=== PATIENT | female | born 1945 | race Caucasian/White ===

== ENCOUNTER → 2017-01-18 | Outpatient (CLI) | payer BC ==
--- NOTE | 2017-01-19 13:07 | MAMMOGRAPHY REPORT ---
BILATERAL DIGITAL SCREENING MAMMOGRAM TOMOSYNTHESIS WITH CAD: 01/18/2017 CLINICAL HISTORY: Asymptomatic. Personal history of breast cancer. TECHNIQUE: Bilateral breast tomosynthesis in addition to standard 2D mammography was performed. A 2 -D repeat right MLO view and right XCCL view were obtained. Current study was also evaluated with a Computer Aided Detection (CAD) system. COMPARISON: Comparison is made to exams dated: 07/14/2016 mammogram, 01/13/2016 mammogram, 01/01/2016 mammogram, 12/17/2014 mammogram, 12/15/2013 mammogram - [facility], and 11/01/2012 m ammogram - [facility]. BREAST COMPOSITION: The tissue of both breasts is heterogeneously dense, which may obscure small ma sses. FINDINGS: There is an asymmetry in the far superior, posterior right breast, only seen on the MLO v iews. Although this could represent normal overlapping fibroglandular tissue, additional spot compr ession tomosynthesis views and possibly ultrasound are recommended. There is evidence of prior surgery within the right breast. There are scattered benign coarse calci fications bilaterally. Minimal vascular calcification. No other suspicious mass, architectural dis tortion or cluster of microcalcifications is seen. IMPRESSION: ACR BI-RADS CATEGORY 0: INCOMPLETE EVALUATION: NEED ADDITIONAL IMAGING EVALUATION The asymmetry in the posterior, superior right breast needs additional evaluation. The patient will be called to schedule an appointment. Approximately 10% of breast cancers are not detected with mammography. A negative mammographic repor t should not delay biopsy if a clinically suggestive mass is present. Helen Bryant M.D. ay/:01/18/2017 16:49:19 Wellness Specialist: Lachelle Walsh RT(R)(M)(BD), [facility] letter sent: Addl Imaging 0 BI-RADS Code: ACR BI-RADS Category 0: Incomplete Evaluation: Need Additional Imaging Evaluation
== END | disposition home or self-care (01) ==
LOC: C.MAMM 13:27
PROVIDERS: ATTEND Family Medicine
DX: Z12.31 Encounter for screening mammogram for malignant neoplasm of breast (principal); N64.89 Other specified disorders of breast

== ENCOUNTER → 2017-01-27 | Outpatient (CLI) | payer BC ==
--- NOTE | 2017-01-27 13:16 | MAMMOGRAPHY REPORT ---
UNILATERAL RIGHT DIGITAL DIAGNOSTIC MAMMOGRAM TOMOSYNTHESIS AND TARGETED RIGHT ULTRASOUND: 01/27/2017 CLINICAL HISTORY: 71-year-old woman with a personal history of right breast cancer status post breas t conservation therapy called back from screening mammography for an asymmetry in the superior poste rior right breast on the MLO view. TECHNIQUE: Right MLO 2-D view and spot compression MLO tomosynthesis images were obtained. COMPARISON: Comparison is made to exams dated: 01/18/2017 mammogram, 01/01/2016 mammogram, 12/17/2014 m ammogram, 12/15/2013 mammogram - [facility], 11/01/2012 mammogram, and 10/26/2011 mamm ogram - [facility]. BREAST COMPOSITION: The tissue of the right breast is heterogeneously dense, which may obscure smal l masses. FINDINGS: The supplemental mammographic views and tomosynthesis images demonstrate effacement of the dense asymmetry in the superior posterior right breast. There is no evidence of a persistent mass or suspicious architectural distortion in the right breast. There are stable postsurgical changes i ncluding surgical clips. There are benign calcifications and vascular calcifications. Targeted ultrasound was performed at the superior right breast. Normal dense fibroglandular tissue is seen without a suspicious solid or cystic mass. IMPRESSION: ACR BI-RADS CATEGORY 2: BENIGN, TARGETED ULTRASOUND ACR BI-RADS CATEGORY 2: BENIGN Effacement of the right superior asymmetry, and no suspicious sonographic correlate. There is no ma mmographic or targeted sonographic evidence of malignancy. Return to annual mammogram screening sche dule is recommended. The patient has been verbally notified of the results. Approximately 10% of breast cancers are not detected with mammography. A negative mammographic repor t should not delay biopsy if a clinically suggestive mass is present. Helen Bryant M.D. ay/:01/27/2017 12:42:39 Manager Environmental Health And Safety: Giovanny MAYS(Caro)([place]), [facility] letter sent: Normal 1/2 BI-RADS Code: ACR BI-RADS Category 2: Benign Ultrasound BI-RADS: ACR BI-RADS Category 2: Benign
== END | disposition home or self-care (01) ==
LOC: C.MAMM 07:50
PROVIDERS: ATTEND Family Medicine
DX: N64.89 Other specified disorders of breast (principal); Z85.3 Personal history of malignant neoplasm of breast

== ENCOUNTER → 2018-01-19 | Outpatient (CLI) | payer BC ==
--- NOTE | 2018-01-19 15:45 | MAMMOGRAPHY REPORT ---
BILATERAL DIGITAL SCREENING MAMMOGRAM TOMOSYNTHESIS WITH CAD: 01/19/2018 CLINICAL HISTORY: Routine screening. Patient has no complaints. TECHNIQUE: Breast tomosynthesis in addition to standard 2D mammography was performed. Current study was also evaluated with a Computer Aided Detection (CAD) system. COMPARISON: Comparison is made to exams dated: 01/27/2017 ultrasound, 01/27/2017 mammogram, 07/14/2016 ultrasound, 07/14/2016 mammogram, and 01/01/2016 mammogram - [facility]. BREAST COMPOSITION: The tissue of both breasts is heterogeneously dense, which may obscure small mas ses. FINDINGS: There are stable postsurgical changes in the right breast, with surgical clips remaining in place in the far posterior retroareolar right breast. There are a few benign rim calcifications and mild vascular calcifications bilaterally. No new suspicious mass, architectural distortion or clust er of microcalcifications is seen. IMPRESSION: ACR BI-RADS CATEGORY 1: NEGATIVE There is no mammographic evidence of malignancy. A 1 year screening mammogram is recommended. The pa tient will receive written notification of the results. Approximately 10% of breast cancers are not detected with mammography. A negative mammographic report should not delay biopsy if a clinically suggestive mass is present. Helen Bryant M.D. ay/:01/19/2018 14:04:32 Training Technician: Samia MAYS(Caro)(M), [facility] letter sent: Normal 1/2 BI-RADS Code: ACR BI-RADS Category 1: Negative
== END | disposition home or self-care (01) ==
LOC: C.MAMM 13:22
PROVIDERS: ATTEND Family Medicine
DX: Z12.31 Encounter for screening mammogram for malignant neoplasm of breast (principal); Z85.3 Personal history of malignant neoplasm of breast

== ENCOUNTER 2025-05-04 17:07 | Inpatient (IN) ==
[2025-05-04] MEDS: ONDANSETRON INJ 2 MG/ML 2 ML VIAL IV STA (17:35)
[2025-05-04] MEDS: SODIUM CHLORIDE 0.9% 1,000 ML IV SCH (17:35)
--- NOTE | 2025-05-04 17:35 | Emergency Department Note ---
Impression & Plan Acute pyelonephritis, Elevated troponin, Frequent PVCs, Acute hyponatremia, Hypophosphatemia ED Provider Note NAME: CHRISTINE GHOSH AGE: 79 SEX: F : 1945 ARRIVES VIA: Ambulance INFORMANT: Patient, EMS ED PROVIDER(S): Isaac Diana DO CHIEF COMPLAINT: bradycardia HPI: This is a 79-year-old female with the PMHx of HLD presenting to [facility] for further evaluation of bradycardia. Patient is accompanied by EMS who provide additional history. EMS provides further details. The patient presented today to [facility] urgent care and was sent in for bradycardia. They found her heart rate to be in the 30s and 40s. Patient presented there for a week of symptoms including fevers, congestion, chills and nausea without emesis. Patient reports crampy upper abdominal pain. Patient states that she has generalized fatigue, weakness and malaise. Tmax 102F. Denies chest pain or palpitations. No shortness of breath. No urinary complaints. No recent changes in bowel movements. Patient denies recent changes in medications or OTC supplements. Patient offers no other complaints, today. ADDITIONAL HISTORY OBTAINED: Per HPI Chronic Medical/Social Conditions Affecting Care: Per HPI PAST MEDICAL HISTORY: See Below PAST SURGICAL HISTORY: See Below FAMILY HISTORY: See Below SOCIAL HISTORY: See Below HOME MEDICATIONS: See Below ALLERGIES: See Below VITALS: See Below PHYSICAL EXAMINATION: GENERAL: Sitting up in bed, alert, ill appearing, well nourished, no distress, non-toxic EYE EXAM: normal conjunctiva. PERRL and EOM's grossly intact. OROPHARYNX: no exudate, no erythema, lips, buccal mucosa, and tongue normal and mucous membranes are dry NECK: supple, no nuchal rigidity, no adenopathy, non-tender LUNGS: Clear to auscultation. Normal chest wall mechanics HEART: no murmurs, regular rate, regular rhythm ABDOMEN: abdomen soft, non-tender, no masses, no rebound or guarding. BACK: Back is symmetrical on inspection and there is no deformity, no midline tenderness, no CVA tenderness. SKIN: no rashes and no bruising UPPER EXTREMITIES: upper extremities are grossly normal. LOWER EXTREMITIES: No pitting edema. NEURO EXAM: Normal sensorium, GCS 15, normal speech, no gross weakness of arms, no gross weakness of legs. MEDICAL DECISION MAKING: Differential diagnoses includes but not limited to ACS, dysrhythmia, sepsis, bacteremia, viral URI, pneumonia, UTI, pyelonephritis, obstructing ureterolithiasis, enteritis, electrolyte derangements, dehydration In summary, this is a 79 year old female who presented with fevers. Differential as above. Nursing notes and pertinent past medical records reviewed. Vital signs reviewed and the patient is afebrile and HDS but HR intermittently >90. Given fevers as well as history, I am concerned for sepsis rather than true bradycardia. PVCs present but she appears asymptomatic. Her burden did decrease throughout the ED course. History and presentation revealed ongoing symptoms for the past week without improvement. Continues to have intermittent fevers. Physical examination revealed dry appearance and generally ill appearing. As a result of my initial evaluation, plan primary sepsis evaluation. Will collect electrolytes as well as troponin levels given the patient. Noted that she would benefit from CT Abdo/pelvis given ongoing fevers as well as nausea and vomiting. Diagnostics interpreted by me include EKG and cardiac monitoring as listed below: -Cardiac Monitoring: An order was placed for continuous cardiac monitoring. The monitor shows a rate of 80-100s with regular rhythm. -ECG: EKG independently interpreted by me reveals sinus rhythm with frequent PVCs. No ST segment changes to suggest STEMI. Intervals within normal limits. Patient completed laboratory studies and imaging. Results independently interpreted by me are troponin leak noted. Feel this is most likely demand ischemia in the setting of sepsis. Procalcitonin is elevated. Repeat EKG independently interpreted by me reveals normal sinus rhythm at a ventricular rate of 91 bpm. There are PVCs present on this rhythm strip. Appears to be due to PVCs. No significant ST segment changes to suggest STEMI. troponin was stable on repeat. The patient does not have any symptoms consistent with cardiovascular disease. Minimal leukocytosis present. Does have mild hyponatremia as well as hypophosphatemia. UA was positive for UTI. The patient was managed with IVFR, abx and electrolyte replenishment. CT abdomen/pelvis independently interpreted by me reveals bilateral pyelonephritis. No obstructing process. Given ongoing symptoms as well as concern for sepsis, will plan for admission with IV abx. Feel this is reasonable given bilateral presence of pyelonephritis. Ultimately, the decision was made to admit the patient for bilateral pyelonephritis. I discussed the case with the hospitalist service via telephone/TigerText and they are agreeable to admit the patient to their services. Based on the above, including the patient's age, coexisting illnesses, labs, imaging, and exam findings the decision to treat as an inpatient. I discussed the patient with the hospitalist team who recommended admission to their services. They received the medications, treatments, interventions indicated above and their condition []. I discussed my findings with the patient and their family and they understand and agree with the treatment plan. All patient / family questions were answered to their satisfaction. Consults/Care Managements Discussions: Per MDM ER treatment provided: See above Procedures:none Critical Care: None The chart was completed utilizing [employer] Speech voice recognition software. Grammatical errors, random word insertions, pronoun errors, and incomplete sentences are an occasional consequence of this system due to software limitations, ambient noise, and hardware issues. Any formal questions or concerns about the content, text, or information contained within the body of this dictation should be directly addressed to the physician for clarification. Past Med/Surg History Problem List (Updated 05/04/25 @ 22:19 by Isaac Diana DO) Hypophosphatemia (Acute) Acute hyponatremia (Acute) Frequent PVCs (Acute) Elevated troponin (Acute) Acute pyelonephritis (Acute) Encounter for pre-operative examination Medical History Breast cancer R HAD RADIATION Surgical History History of bilateral tubal ligation History of bowel resection GANGRENE AFTER HERNIA SURGERY 2005 History of colonoscopy History of hernia surgery History of lumpectomy of right breast History of tonsillectomy History of tooth extraction H/O eye surgery R RETINA MEMBRANE Family History Family/Other Family hx of colon cancer MATERNAL AUNT Social History Smoking Status: Never smoker Second Hand Exposure: No; Do You Dip or Chew Tobacco: No; Hx Alcohol Use: Yes Alcohol type: wine Hx Substance Use: No Preferred Language: Arabic Communication Ability: Effective Last Chalker Required: No Beliefs That Will Affect Care: None Current Living Situation: Spouse Feels Safe at Home: Yes Assistive Devices: Glasses Allergies Allergies Allergy/AdvReac Type Severity Reaction Status Date / Time No Known Allergies Allergy Verified 05/04/25 21:07 Home Meds Home Medications Medication Instructions Recorded Confirmed ascorbic acid (vitamin C) 1,000 mg 1 tab PO TID 05/24/18 05/04/25 tablet (Vitamin C) calcium carbonate (Calcium 600) 600 mg PO TID 05/24/18 05/04/25 cholecalciferol (vitamin D3) 50 2,000 unit PO TID 05/24/18 05/04/25 mcg (2,000 unit) tablet (Vitamin D3) krill 500 mg-omega-3 110 mg-dha 28 1 cap PO QPM 05/24/18 05/04/25 mg-epa 60 [id number] capsule multivitamin (Multiple Vitamins 1 tab PO QPM 05/24/18 05/04/25 tablet) vit A 300 mcg-C 200 mg-E 27 1 tab PO QAM 05/24/18 05/04/25 mg-lutein 2 mg and minerals tablet (Vision Formula (with lutein)) atorvastatin 20 mg tablet 20 mg PO HS 05/04/25 05/04/25 prednisolone acetate 1 % eye 1 drp ophthalmic (eye) QID 05/04/25 05/04/25 drops,suspension Previous Rx's Medication Instructions Recorded nepafenac 0.3 % eye 1 drops ophthalmic (eye) DAILY #3 06/08/18 drops,suspension (Ilevro) mL Results & Data (ED) Vital Signs Vital Signs - 24 hr 05/04/25 17:18 05/04/25 17:21 05/04/25 17:23 Temperature 37.2 C Temperature Source Oral Pulse Rate 85 Pulse Rate [Apical] Pulse Rate from SpO2 Sensor Pulse Rhythm [Apical] Pulse Strength [Apical] Respiratory Rate 22 Respiratory Effort / Characteristics Non-Labored Spontaneous Respiratory Depth Normal Respiratory Pattern Regular Blood Pressure 128/99 Blood Pressure [Left Arm] Blood Pressure Mean 108 Blood Pressure Mean [Left Arm] Blood Pressure Position [Left Arm] Pulse Oximetry 94 Oxygen Delivery Method Room Air Room Air Room Air Sepsis Recent Fever Within 48 Hours Yes Sepsis New/Unexplained Change in Mental Status No Sepsis Action Taken by Nursing No Action Required 05/04/25 17:23 05/04/25 17:49 05/04/25 18:13 Temperature Temperature Source Pulse Rate 85 82 Pulse Rate [Apical] Pulse Rate from SpO2 Sensor 78 Pulse Rhythm [Apical] Pulse Strength [Apical] Respiratory Rate 20 Respiratory Effort / Characteristics Respiratory Depth Respiratory Pattern Blood Pressure 155/69 H Blood Pressure [Left Arm] Blood Pressure Mean 105 Blood Pressure Mean [Left Arm] Blood Pressure Position [Left Arm] Pulse Oximetry 96 95 Oxygen Delivery Method Room Air Room Air Sepsis Recent Fever Within 48 Hours Sepsis New/Unexplained Change in Mental Status Sepsis Action Taken by Nursing 05/04/25 18:16 05/04/25 18:30 05/04/25 19:30 Temperature Temperature Source Pulse Rate 83 93 H Pulse Rate [Apical] 85 Pulse Rate from SpO2 Sensor 78 90 Pulse Rhythm [Apical] Regular Pulse Strength [Apical] Normal Respiratory Rate 20 16 20 Respiratory Effort / Characteristics Non-Labored Spontaneous Respiratory Depth Normal Respiratory Pattern Regular Blood Pressure 135/62 140/70 Blood Pressure [Left Arm] 160/66 H Blood Pressure Mean 97 109 Blood Pressure Mean [Left Arm] 97 Blood Pressure Position [Left Arm] Semi-fowlers Pulse Oximetry 96 95 95 Oxygen Delivery Method Room Air Room Air Room Air Sepsis Recent Fever Within 48 Hours Sepsis New/Unexplained Change in Mental Status Sepsis Action Taken by Nursing 05/04/25 19:45 05/04/25 20:00 05/04/25 20:15 Temperature Temperature Source Pulse Rate 97 H 91 H 93 H Pulse Rate [Apical] Pulse Rate from SpO2 Sensor 95 H 90 88 Pulse Rhythm [Apical] Pulse Strength [Apical] Respiratory Rate 22 23 22 Respiratory Effort / Characteristics Respiratory Depth Respiratory Pattern Blood Pressure 145/72 H 136/77 120/70 Blood Pressure [Left Arm] Blood Pressure Mean 106 114 74 Blood Pressure Mean [Left Arm] Blood Pressure Position [Left Arm] Pulse Oximetry 95 94 96 Oxygen Delivery Method Room Air Room Air Room Air Sepsis Recent Fever Within 48 Hours Sepsis New/Unexplained Change in Mental Status Sepsis Action Taken by Nursing 05/04/25 21:15 05/04/25 21:39 05/04/25 21:45 Temperature Temperature Source Pulse Rate 100 H 83 88 Pulse Rate [Apical] Pulse Rate from SpO2 Sensor 100 H 82 88 Pulse Rhythm [Apical] Pulse Strength [Apical] Respiratory Rate 20 21 21 Respiratory Effort / Characteristics Respiratory Depth Respiratory Pattern Blood Pressure 131/82 Blood Pressure [Left Arm] Blood Pressure Mean 98 Blood Pressure Mean [Left Arm] Blood Pressure Position [Left Arm] Pulse Oximetry 93 94 93 Oxygen Delivery Method Sepsis Recent Fever Within 48 Hours Sepsis New/Unexplained Change in Mental Status Sepsis Action Taken by Nursing 05/04/25 22:03 Temperature Temperature Source Pulse Rate 85 Pulse Rate [Apical] Pulse Rate from SpO2 Sensor 84 Pulse Rhythm [Apical] Pulse Strength [Apical] Respiratory Rate 23 Respiratory Effort / Characteristics Respiratory Depth Respiratory Pattern Blood Pressure Blood Pressure [Left Arm] Blood Pressure Mean Blood Pressure Mean [Left Arm] Blood Pressure Position [Left Arm] Pulse Oximetry 94 Oxygen Delivery Method Sepsis Recent Fever Within 48 Hours Sepsis New/Unexplained Change in Mental Status Sepsis Action Taken by Nursing Laboratory Data 05/04/25 17:40 05/04/25 18:28 Lab Results 05/04/25 05/04/25 05/04/25 Range/Units 17:40 18:02 18:28 WBC 10.94 H (4.8-10.8) K/ul RBC 4.81 (4.20-5.40) M/uL Hgb 14.6 (12.0-16.0) g/dl Hct 42.3 (37.0-47.0) % MCV 87.9 (80.0-100.0) fL MCH 30.4 (25.0-34.0) pg MCHC 34.5 (32.0-36.0) g/dL RDW Std Deviation 41.7 (36.4-46.3) fL RDW Coeff of Marry 12.9 (11.5-14.5) % Plt Count 136 (130-400) K/uL MPV 12.2 (9.4-12.4) fL Immature Gran % (Auto) 0.6 % Neut % (Auto) 70.4 % Lymph % (Auto) 10.3 % [place] % (Auto) 18.4 % Eos % (Auto) 0.1 % Baso % (Auto) 0.2 % Neut # (Auto) 7.70 H (1.40-6.50) K/uL Lymph # (Auto) 1.13 L (1.20-3.40) K/uL [place] # (Auto) 2.01 H (0.11-0.59) K/uL Eos # (Auto) 0.01 (0.00-0.50) K/uL Baso # (Auto) 0.02 (0.00-0.20) K/uL Immature Gran # (Auto) 0.07 (0.01-0.20) K/uL RBC Morphology Unremarkable PT 11.0 (9.0-12.0) Seconds INR 1.0 (0.9-1.1) APTT 27 (21-31) Seconds PTT Ratio 1.0 Sodium 130 L (136-145) mmol/L Potassium TNP 3.9 Chloride 94 L (98-107) mmol/L Carbon Dioxide 28 (21-32) mmol/L Anion Gap 8 (3-11) BUN 16 (6-23) mg/dl Creatinine 0.78 (0.6-1.2) mg/dl Est Cr Clr Drug Dosing 65.4 ml/min eGFR 76.73 BUN/Creatinine Ratio 20.5 H (10-20) Glucose 129 H (70-99(Fasting)) mg/dl Lactate 1.6 (0.4-2.0) mmol/L Calcium 9.6 (8.6-10.3) mg/dl Phosphorus 2.3 L (2.5-4.9) mg/dl Magnesium 2.1 (1.7-2.4) mg/dl Total Bilirubin 0.8 (0.2-1.0) mg/dl AST TNP 10 L ALT 17 (7-52) U/L Alkaline Phosphatase 75 (34-104) U/L Troponin I High Sens 60.3 H* (0-14) pg/ml Total Protein 7.1 (6.0-8.3) gm/dl Albumin 3.6 (3.4-5.0) gm/dl Globulin 3.5 (2.5-4.0) gm/dl Albumin/Globulin Ratio 1.0 (0.9-2) Lipase 11 (11-82) U/L Procalcitonin 5.72 H (0-0.5) ng/ml TSH 3.313 (0.300-4.500) uIu/ml Urine Color Urine Appearance (Clear) Urine pH (4.5-7.5) Ur Specific [place] (1.000-1.030) Urine Protein (Negative) Urine Glucose (UA) (Negative) Urine Ketones (Negative) Urine Blood (Negative) Urine Nitrite (Negative) Urine Bilirubin (Negative) Urine Urobilinogen (Negative) Ur Leukocyte Esterase (Negative) Urine WBC (Auto) (0-5) /hpf Urine RBC (Auto) (0-2) /hpf U Hyaline Cast (Auto) (0-2) /lpf U Epithel Cells (Auto) (0-2) /hpf Urine Bacteria (Auto) (None Seen) Ur Random Sodium mmol/L Urine Comment Adenovirus (PCR) Not Detected (NotDetected) B. pertussis DNA (PCR) Not Detected (NotDetected) B.parapertussis DNA PCR Not Detected (NotDetected) C. pneumoniae DNA (PCR) Not Detected (NotDetected) Coronavirus OC43 (PCR) Not Detected (NotDetected) Coronavirus HKU1 (PCR) Not Detected (NotDetected) Coronavirus 229E (PCR) Not Detected (NotDetected) SARS-CoV-2 (PCR) Not Detected (NotDetected) Coronavirus NL63 (PCR) Not Detected (NotDetected) Human Metapneumovir PCR Not Detected (NotDetected) Influenza Type A (PCR) Not Detected (NotDetected) Influenza Type B (PCR) Not Detected (NotDetected) M. pneumoniae (PCR) Not Detected (NotDetected) Parainfluenza 1 (PCR) Not Detected (NotDetected) Parainfluenza 2 (PCR) Not Detected (NotDetected) Parainfluenza 3 (PCR) Not Detected (NotDetected) Parainfluenza 4 (PCR) Not Detected (NotDetected) RSV (PCR) Not Detected (NotDetected) Entero/Rhino (PCR) Not Detected (NotDetected) 05/04/25 05/04/25 Range/Units 19:31 20:56 WBC (4.8-10.8) K/ul RBC (4.20-5.40) M/uL Hgb (12.0-16.0) g/dl Hct (37.0-47.0) % MCV (80.0-100.0) fL MCH (25.0-34.0) pg MCHC (32.0-36.0) g/dL RDW Std Deviation (36.4-46.3) fL RDW Coeff of Marry (11.5-14.5) % Plt Count (130-400) K/uL MPV (9.4-12.4) fL Immature Gran % (Auto) % Neut % (Auto) % Lymph % (Auto) % [place] % (Auto) % Eos % (Auto) % Baso % (Auto) % Neut # (Auto) (1.40-6.50) K/uL Lymph # (Auto) (1.20-3.40) K/uL [place] # (Auto) (0.11-0.59) K/uL Eos # (Auto) (0.00-0.50) K/uL Baso # (Auto) (0.00-0.20) K/uL Immature Gran # (Auto) (0.01-0.20) K/uL RBC Morphology PT (9.0-12.0) Seconds INR (0.9-1.1) APTT (21-31) Seconds PTT Ratio Sodium (136-145) mmol/L Potassium Chloride (98-107) mmol/L Carbon Dioxide (21-32) mmol/L Anion Gap (3-11) BUN (6-23) mg/dl Creatinine (0.6-1.2) mg/dl Est Cr Clr Drug Dosing ml/min eGFR BUN/Creatinine Ratio (10-20) Glucose (70-99(Fasting)) mg/dl Lactate (0.4-2.0) mmol/L Calcium (8.6-10.3) mg/dl Phosphorus (2.5-4.9) mg/dl Magnesium (1.7-2.4) mg/dl Total Bilirubin (0.2-1.0) mg/dl AST ALT (7-52) U/L Alkaline Phosphatase (34-104) U/L Troponin I High Sens 61.1 H* (0-14) pg/ml Total Protein (6.0-8.3) gm/dl Albumin (3.4-5.0) gm/dl Globulin (2.5-4.0) gm/dl Albumin/Globulin Ratio (0.9-2) Lipase (11-82) U/L Procalcitonin (0-0.5) ng/ml TSH (0.300-4.500) uIu/ml Urine Color Yellow Urine Appearance Turbid A (Clear) Urine pH 6.5 (4.5-7.5) Ur Specific [place] 1.039 H (1.000-1.030) Urine Protein 2+ H (Negative) Urine Glucose (UA) Negative (Negative) Urine Ketones 1+ H (Negative) Urine Blood 3+ H (Negative) Urine Nitrite Positive A (Negative) Urine Bilirubin Negative (Negative) Urine Urobilinogen Negative (Negative) Ur Leukocyte Esterase 3+ H (Negative) Urine WBC (Auto) >50 H (0-5) /hpf Urine RBC (Auto) 11-20 H (0-2) /hpf U Hyaline Cast (Auto) 3-5 H (0-2) /lpf U Epithel Cells (Auto) 0-2 (0-2) /hpf Urine Bacteria (Auto) 4+ H (None Seen) Ur Random Sodium 19 mmol/L Urine Comment Adenovirus (PCR) (NotDetected) B. pertussis DNA (PCR) (NotDetected) B.parapertussis DNA PCR (NotDetected) C. pneumoniae DNA (PCR) (NotDetected) Coronavirus OC43 (PCR) (NotDetected) Coronavirus HKU1 (PCR) (NotDetected) Coronavirus 229E (PCR) (NotDetected) SARS-CoV-2 (PCR) (NotDetected) Coronavirus NL63 (PCR) (NotDetected) Human Metapneumovir PCR (NotDetected) Influenza Type A (PCR) (NotDetected) Influenza Type B (PCR) (NotDetected) M. pneumoniae (PCR) (NotDetected) Parainfluenza 1 (PCR) (NotDetected) Parainfluenza 2 (PCR) (NotDetected) Parainfluenza 3 (PCR) (NotDetected) Parainfluenza 4 (PCR) (NotDetected) RSV (PCR) (NotDetected) Entero/Rhino (PCR) (NotDetected) Administered Medications Discontinued Medications Sodium Chloride (Nss) 1,000 mls @ 999 mls/hr IV .Q1H1M RADHA Stop: 05/04/25 18:30 Last Infusion: 05/04/25 19:52 Dose: Infused Documented By: Admin: 05/04/25 17:35 Dose: 999 mls/hr Documented By: TDM Cefepime HCl (Maxipime 2000mg) 2,000 mg in 20 mls @ 5 mls/min IV NOW STA; Protocol Stop: 05/04/25 17:26 Last Admin: 05/04/25 18:06 Dose: 5 mls/min Documented By: KARL Sodium Phosphate 15 mmol/ (Sodium Chloride) 255 mls @ 88 mls/hr IV ONE ONE Stop: 05/04/25 21:53 Last Admin: 05/04/25 19:46 Dose: 88 mls/hr Documented By: REGGIE Parenteral Electrolytes (Plasma-Lyte A Ph 7.4) 1,000 mls @ 999 mls/hr IV .Q1H1M ONE Stop: 05/04/25 20:11 Last Admin: 05/04/25 20:31 Dose: 999 mls/hr Documented By: REGGIE Ioversol (Optiray 320 100ml) 92 ml IV ONCE ONE Stop: 05/04/25 18:59 Last Admin: 05/04/25 18:59 Dose: 92 ml Documented By: ALICIA Ondansetron HCl (Ondansetron Inj 2 Mg/Ml 2 Ml Vial) 4 mg IV NOW STA Stop: 05/04/25 17:24 Last Admin: 05/04/25 17:35 Dose: 4 mg Documented By: KARL Potassium Chloride (Potassium Chloride Crtab 20 Meq Tabcr) 20 meq PO NOW STA Stop: 05/04/25 20:44 Last Admin: 05/04/25 21:12 Dose: 20 meq Documented By: REGGIE Imaging Data Radiologist's Impression: Chest X-Ray 05/04/25 17:18 EXAM: XR chest 1V portable CLINICAL HISTORY: Chest pain, nonspecific TECHNIQUE: An X-ray image of the chest is obtained in AP projection. COMPARISON: No prior studies are available for comparison. FINDINGS: Pulmonary Parenchyma: No evidence of consolidation, collapse, or focal opacities. Hyperinflated lungs, suggesting mild emphysema/COPD. Right basal tiny calcified nodule, likely old healed granuloma. No evidence of pleural effusion or pleural thickening. Heart and Mediastinum: Heart size and shape are normal. No mediastinal widening or masses. No hilar or mediastinal lymphadenopathy. Bony Thorax: Bony thorax appears intact without fractures or deformities. Soft Tissues: Soft tissues overlying the chest wall are unremarkable. IMPRESSION: 1. No acute abnormality. No evidence of pneumonic consolidation, collapse, or focal opacities. 2. Hyperinflated lungs, suggesting mild emphysema/COPD. Electronically signed by Maximino Muñiz 05-04-2025 6:23 PM Abdomen/Pelvis CT 05/04/25 17:23 EXAM: CT abd pelvis IV con only CLINICAL HISTORY: severe nausea, fever, sepsis TECHNIQUE: Non-contrast CT of the abdomen and pelvis was performed, with the following protocol: axial images, and reconstructed coronal and sagittal images. No intravenous contrast was administered. One of the following dose reduction techniques was utilized for this exam: Automated exposure control, adjustment of the mA and/or kV according to patient size, and use of iterative reconstruction. COMPARISON: No prior studies available for comparison. FINDINGS: Abdomen: Liver: The liver is enlarged (20 cm). Normal in size, shape, and density. No focal lesions, or masses were identified. Left hepatic lobe segment II small cyst, measuirng 6mm. Gallbladder and Biliary System: The gallbladder is normal in size and shape. No wall thickening, pericholecystic fluid, or gallstones were identified. Pancreas: Pancreatic head, body, and tail are visualized and appear normal in size and density. No pancreatic masses or calcifications were noted. Spleen: Normal in size, shape, and density. No splenic lesions or masses were identified. Kidneys and Adrenal Glands: Both kidneys are normal in size, shape, and position. Cortical thickness is within normal limits. The right kidney shows subtle hypodense parenchymal areas in its upper, middle, and lower zones. A smaller, similar hypodense parenchymal lesion was seen in the left upper renal zone. Bilateral mild mural thickneing and enhancement of the renal pelves and upper ureters. No renal calculi or hydronephrosis. Adrenal glands are unremarkable. Pelvis: Urinary Bladder: Normal in contour showing mild mural thickening. Uterus: Retroverted uterus. Normal in size and contour. No masses or abnormal thickening. Prominent periuterine venous vascular channels with dilated gonadal veins. Ovaries: Not well visualized, but no gross abnormalities noted. Vagina: Normal in contour and wall thickness. Cervix: No evidence of mass or abnormal thickening. Peritoneal and Retroperitoneal Structures: No free fluid or abnormal fluid collections were identified within the abdomen or pelvis. No lymphadenopathy was noted. Bowel: The visualized bowel loops are normal in caliber and appearance. No evidence of bowel obstruction or wall thickening. No CT evidence of acute appendicitis. Sigmoid and descending colon diverticulosis. No complications. Bones and Soft Tissues: Pelvic bones and soft tissues are unremarkable. No fractures or abnormal masses were identified. L4 1st degree degenerative spondylolithesis. Lumbar spondylosis with Modic III sclerotic degenerative changes of L2-3 opposing endplates. Scanned lower chest cuts showed mild pericardial effusion, mild right pleural effusion, and bilateral basal atelectatic bands. IMPRESSION: 1. Bilateral renal parenchymal patchy hypodensities, more evident on the right side, associated with bilateral mild mural thickening and enhancement of the renal pelves and upper ureters, suggestive of bilateral pyelonephritis. Need clinical and laboratory correlation. 2. Mild urinary bladder mural thickneing, likley mild cystitis. 3. Hepatomegaly, with left hepatic lobe small cyst. 4. Retroverted uterus with prominent periuterine venous vascular channels and dilated gonadal veins, could be suggestive of pelvic congestion syndrome. 5. Sigmoid and descending colon diverticulosis. No complications. Electronically signed by Maximino Muñiz 05-04-2025 8:17 PM Discharge Plan Visit Data Chief Complaint: Illness Stated Complaint: Cardiac Assessment ED Provider: Isaac Diana Discharge Problem: Acute pyelonephritis, Elevated troponin, Frequent PVCs, Acute hyponatremia, Hypophosphatemia Patient Disposition: Admitted As Inpatient Condition: Fair Forms Stand Alone Forms: [facility] Prescriptions Prescriptions: No Action multivitamin [Multiple Vitamins] Tablet 1 tab PO QPM ascorbic acid (vitamin C) [Vitamin C] 1,000 mg Tablet 1 tab PO TID calcium carbonate [Calcium 600] 600 mg calcium (1,500 mg) Tablet 600 mg PO TID Vision Formula (with lutein) 1,000 unit-200 mg-60 unit-2 mg Tablet 1 tab PO QAM cholecalciferol (vitamin D3) [Vitamin D3] 2,000 unit Tablet 2,000 unit PO TID [id number] mg Capsule 1 cap PO QPM Ilevro 0.3 % drops,suspension 1 drops OP DAILY Qty: 3 0RF Rx Instructions: in operative eye atorvastatin 20 mg tablet 20 mg PO HS prednisolone acetate 1 % drops,suspension 1 drp ophthalmic (eye) QID Rx Instructions: left eye Referrals Referrals: Eddie Salinas MD [Primary Care Provider] -
[2025-05-04] MEDS: CEFEPIME 2000MG 2,000 MG/20 ML SYR IV STA (18:06)
--- NOTE | 2025-05-04 18:24 | XRay Report ---
EXAM: XR chest 1V portable CLINICAL HISTORY: Chest pain, nonspecific TECHNIQUE: An X-ray image of the chest is obtained in AP projection. COMPARISON: No prior studies are available for comparison. FINDINGS: Pulmonary Parenchyma: No evidence of consolidation, collapse, or focal opacities. Hyperinflated lungs, suggesting mild emphysema/COPD. Right basal tiny calcified nodule, likely old healed granuloma. No evidence of pleural effusion or pleural thickening. Heart and Mediastinum: Heart size and shape are normal. No mediastinal widening or masses. No hilar or mediastinal lymphadenopathy. Bony Thorax: Bony thorax appears intact without fractures or deformities. Soft Tissues: Soft tissues overlying the chest wall are unremarkable. IMPRESSION: 1. No acute abnormality. No evidence of pneumonic consolidation, collapse, or focal opacities. 2. Hyperinflated lungs, suggesting mild emphysema/COPD. Electronically signed by Maximino Muñiz 05-04-2025 6:23 PM
[2025-05-04 18:28] LABS: Alanine Aminotransferase 17 U/L (7-52); Albumin Globulin Ratio 1.0 (0.9-2); Alkaline Phosphatase 75 U/L (34-104); Anion Gap 8 (3-11); Bilirubin,Total 0.8 mg/dl (0.2-1.0); Blood Urea Nitrogen 16 mg/dl (6-23); Calcium 9.6 mg/dl (8.6-10.3); Carbon Dioxide 28 mmol/L (21-32); Chloride 94 mmol/L (98-107); Creatinine Clr Calc Pharmacy 65.4 ml/min; Globulin 3.5 gm/dl (2.5-4.0); Glucose 129 mg/dl (70-99(Fasting)); Lipase 11 U/L (11-82); Magnesium 2.1 mg/dl (1.7-2.4); Sodium 130 mmol/L (136-145); Total Protein 7.1 gm/dl (6.0-8.3)
[2025-05-04 18:30] LABS: INR 1.0 (0.9-1.1); Partial Thromboplastin Time 27 Seconds (21-31); Prothrombin Time 11.0 Seconds (9.0-12.0)
[2025-05-04 18:34] LABS: Hematocrit (blood only) 42.3 % (37.0-47.0); Hemoglobin 14.6 g/dl (12.0-16.0); Mean Corpuscular Hemoglobin 30.4 pg (25.0-34.0); Mean Corpuscular Volume 87.9 fL (80.0-100.0); Platelet Count 136 K/uL (130-400); RDW Standard Deviation 41.7 fL (36.4-46.3); Red Blood Count 4.81 M/uL (4.20-5.40); White Blood Count 10.94 K/ul (4.8-10.8)
[2025-05-04 18:38] LABS: Immature Granulocytes # (auto) 0.07 K/uL (0.01-0.20); Immature Granulocytes % (auto) 0.6 %; RBC Morphology Unremarkable
[2025-05-04] MEDS ORDERED: SODIUM PHOSPHATE 3 MMOL/1 ML 5 ML VIAL IV ONE (18:44)
[2025-05-04 18:48] LABS: Chlamydia pneumoniae PCR Not Detected (NotDetected); Coronavirus 229E PCR Not Detected (NotDetected); Coronavirus CoV-2 (COVID19)PCR Not Detected (NotDetected); Coronavirus HKU1 PCR Not Detected (NotDetected); Coronavirus NL63 PCR Not Detected (NotDetected); Coronavirus OC43PCR Not Detected (NotDetected); Human Metapneumovirus PCR Not Detected (NotDetected); Parainfluenza Virus 1 PCR Not Detected (NotDetected); Parainfluenza Virus 2 PCR Not Detected (NotDetected); Parainfluenza Virus 3 PCR Not Detected (NotDetected); Parainfluenza Virus 4 PCR Not Detected (NotDetected); Respiratory Syncytial VirusPCR Not Detected (NotDetected); Rhinovirus/Enterovirus PCR Not Detected (NotDetected)
[2025-05-04 18:50] LABS: Potassium 3.9 mmol/L (3.5-5.1)
[2025-05-04] MEDS: OPTIRAY 320 100ml IV ONE (18:59)
[2025-05-04] MEDS: SODIUM PHOSPHATE 15 MMOL in SODIUM CHLORIDE 0.9% 250 ML IV ONE (19:46)
--- NOTE | 2025-05-04 20:17 | CT Scan Report ---
EXAM: CT abd pelvis IV con only CLINICAL HISTORY: severe nausea, fever, sepsis TECHNIQUE: Non-contrast CT of the abdomen and pelvis was performed, with the following protocol: axial images, and reconstructed coronal and sagittal images. No intravenous contrast was administered. One of the following dose reduction techniques was utilized for this exam: Automated exposure control, adjustment of the mA and/or kV according to patient size, and use of iterative reconstruction. COMPARISON: No prior studies available for comparison. FINDINGS: Abdomen: Liver: The liver is enlarged (20 cm). Normal in size, shape, and density. No focal lesions, or masses were identified. Left hepatic lobe segment II small cyst, measuirng 6mm. Gallbladder and Biliary System: The gallbladder is normal in size and shape. No wall thickening, pericholecystic fluid, or gallstones were identified. Pancreas: Pancreatic head, body, and tail are visualized and appear normal in size and density. No pancreatic masses or calcifications were noted. Spleen: Normal in size, shape, and density. No splenic lesions or masses were identified. Kidneys and Adrenal Glands: Both kidneys are normal in size, shape, and position. Cortical thickness is within normal limits. The right kidney shows subtle hypodense parenchymal areas in its upper, middle, and lower zones. A smaller, similar hypodense parenchymal lesion was seen in the left upper renal zone. Bilateral mild mural thickneing and enhancement of the renal pelves and upper ureters. No renal calculi or hydronephrosis. Adrenal glands are unremarkable. Pelvis: Urinary Bladder: Normal in contour showing mild mural thickening. Uterus: Retroverted uterus. Normal in size and contour. No masses or abnormal thickening. Prominent periuterine venous vascular channels with dilated gonadal veins. Ovaries: Not well visualized, but no gross abnormalities noted. Vagina: Normal in contour and wall thickness. Cervix: No evidence of mass or abnormal thickening. Peritoneal and Retroperitoneal Structures: No free fluid or abnormal fluid collections were identified within the abdomen or pelvis. No lymphadenopathy was noted. Bowel: The visualized bowel loops are normal in caliber and appearance. No evidence of bowel obstruction or wall thickening. No CT evidence of acute appendicitis. Sigmoid and descending colon diverticulosis. No complications. Bones and Soft Tissues: Pelvic bones and soft tissues are unremarkable. No fractures or abnormal masses were identified. L4 1st degree degenerative spondylolithesis. Lumbar spondylosis with Modic III sclerotic degenerative changes of L2-3 opposing endplates. Scanned lower chest cuts showed mild pericardial effusion, mild right pleural effusion, and bilateral basal atelectatic bands. IMPRESSION: 1. Bilateral renal parenchymal patchy hypodensities, more evident on the right side, associated with bilateral mild mural thickening and enhancement of the renal pelves and upper ureters, suggestive of bilateral pyelonephritis. Need clinical and laboratory correlation. 2. Mild urinary bladder mural thickneing, likley mild cystitis. 3. Hepatomegaly, with left hepatic lobe small cyst. 4. Retroverted uterus with prominent periuterine venous vascular channels and dilated gonadal veins, could be suggestive of pelvic congestion syndrome. 5. Sigmoid and descending colon diverticulosis. No complications. Electronically signed by Maximino Muñiz 05-04-2025 8:17 PM
[2025-05-04] MEDS: PLASMA-LYTE A 1,000 ML IV ONE (20:31)
[2025-05-04] MEDS: POTASSIUM CHLORIDE CRTAB 20 MEQ TABCR PO STA (21:12)
[2025-05-04 21:23] LABS: Appearance Urine Turbid (Clear); Bacteria Urine Automated 4+ (None Seen); Epithelial Cell Urine Auto 0-2 /hpf (0-2); Glucose Urine UA Negative (Negative); WBC Urine Automated >50 /hpf (0-5)
--- NOTE | 2025-05-04 21:49 | History & Physical Report ---
Date of Service May 04, 2025 Assessment & Plan (1) Bradycardia: Plan: Assessment and plan below following discussion of case with ED provider and reviewing patient history/pertinent normal/abnormal diagnostic test results. Transient bradycardia Possible vagal response to abdominal pain from complicated UTI, possible sepsis Hyponatremia, troponin elevation secondary to illness right breast cancer status post surgery/radiation, in remission Hyperglycemia rule out DM past tobacco abuse Admit to PCU Atropine as needed symptomatic bradycardia CS, cefepime Careful correction of sodium Follow troponin TTE, Cardiology consult re: transient bradycardia Check hemoglobin A1c DVT prophylaxis. Lovenox subcu Full code Text document was generated using [employer] voice recognition software. It may contain grammatical or spelling errors. Kindly contact undersigned for clarification of any documentation item in question. History of Present Illness Chief Complaint: Abnormal heartbeat Primary Care Provider: Dr. Marti from [place], [place] History obtained from patient and records. Patient is a "snowbird" who maintains 2 residences ([place] and [place]) Medical history significant for right breast cancer status post surgery/radiation, past tobacco abuse. Last confinement 2002 under General Surgery service for [facility] secondary to incarcerated inguinal hernia status post surgery. Patient not feeling well the last 4 days. Achy upper abdominal pain with nausea, no emesis. No dysuria symptoms. Denies chest pain, SOB, cough. Poor appetite. No recollection of recent tick bites. Temperature of 102 at home. Patient seen at local urgent care center. Noted to have a heart rate of 30s to 40s. Patient directed to ER for evaluation. IV cefepime administered at the ER. Medical History as above Surgical History : Breast biopsy, right mastectomy/lymphadenectomy, tonsillectomy/adenoidectomy, hernia repair, Family History : Breast cancer, heart disease, stroke, RA, colon cancer Personal/Social history : Past tobacco abuse, occasional EtOH intake, retired manager of school Allergies Allergy/AdvReac Type Severity Reaction Status Date / Time No Known Allergies Allergy Verified 05/04/25 21:07 Home Medications Medication Instructions Recorded Confirmed Type ascorbic acid (vitamin C) 1,000 mg 1 tab PO TID 05/24/18 05/04/25 History tablet (Vitamin C) calcium carbonate (Calcium 600) 600 mg PO TID 05/24/18 05/04/25 History cholecalciferol (vitamin D3) 50 2,000 unit PO TID 05/24/18 05/04/25 History mcg (2,000 unit) tablet (Vitamin D3) krill 500 mg-omega-3 110 mg-dha 28 1 cap PO QPM 05/24/18 05/04/25 History mg-epa 60 [id number] capsule multivitamin (Multiple Vitamins 1 tab PO QPM 05/24/18 05/04/25 History tablet) vit A 300 mcg-C 200 mg-E 27 1 tab PO QAM 05/24/18 05/04/25 History mg-lutein 2 mg and minerals tablet (Vision Formula (with lutein)) nepafenac 0.3 % eye 1 drops ophthalmic (eye) DAILY #3 06/08/18 05/04/25 Rx drops,suspension (Ilevro) mL atorvastatin 20 mg tablet 20 mg PO HS 05/04/25 05/04/25 History prednisolone acetate 1 % eye 1 drp ophthalmic (eye) QID 05/04/25 05/04/25 History drops,suspension Past Med/Surg History Problem List (Updated 05/05/25 @ 00:40 by Sohan Mock MD) Bradycardia Hypophosphatemia (Acute) Acute hyponatremia (Acute) Frequent PVCs (Acute) Elevated troponin (Acute) Acute pyelonephritis (Acute) Encounter for pre-operative examination Medical History Breast cancer R HAD RADIATION Surgical History History of bilateral tubal ligation History of bowel resection GANGRENE AFTER HERNIA SURGERY 2005 History of colonoscopy History of hernia surgery History of lumpectomy of right breast History of tonsillectomy History of tooth extraction H/O eye surgery R RETINA MEMBRANE Family History Family/Other Family hx of colon cancer MATERNAL AUNT Social History Smoking Status: Former smoker Tobacco Type: Cigarettes Smoking End Date: 1967; Second Hand Exposure: No; Do You Dip or Chew Tobacco: No; Hx Alcohol Use: No Hx Substance Use: No Preferred Language: Tristanian Communication Ability: Effective Ticket Dispatcher Required: No Beliefs That Will Affect Care: None Current Living Situation: Spouse Other Information That Helps Us Care for You: No Feels Safe at Home: Yes Safety Concerns: Feels Safe At This Time Assistive Devices: Glasses Review of Systems Review of Systems: As per HPI, all other systems reviewed and negative Physical Exam Physical Exam: GENERAL: Comfortable, pleasant, no respiratory distress SKIN: Normal color, warm HEENT: [place] palpebral conjunctivae, no ptosis, dry buccal mucosa NECK : Supple, no tenderness CHEST : CTA, no tenderness HEART : RRR, no obvious murmurs ABDOMEN: Some distention, no tenderness EXTREMITIES : No LE swelling/tenderness, palpable pulses, no other conspicuous deformities noted NEUROLOGIC : Coherent, no facial asymmetry, no other gross focality Results & Data Results & Data Vital Signs (Past 12 Hours) Vital Signs Temp Pulse Pulse Resp BP BP Pulse Ox 05/04/25 21:39 83 21 94 05/04/25 21:15 100 H 20 131/82 93 05/04/25 20:15 93 H 22 120/70 96 05/04/25 20:00 91 H 23 136/77 94 05/04/25 19:45 97 H 22 145/72 H 95 05/04/25 19:30 93 H 20 140/70 95 05/04/25 18:30 83 16 135/62 95 05/04/25 18:16 85 20 160/66 H 96 05/04/25 18:13 82 20 155/69 H 95 05/04/25 17:49 85 05/04/25 17:23 96 05/04/25 17:23 37.2 C 85 22 128/99 94 05/04/25 17:21 05/04/25 17:18 O2 Del Method 05/04/25 21:39 05/04/25 21:15 05/04/25 20:15 Room Air 05/04/25 20:00 Room Air 05/04/25 19:45 Room Air 05/04/25 19:30 Room Air 05/04/25 18:30 Room Air 05/04/25 18:16 Room Air 05/04/25 18:13 Room Air 05/04/25 17:49 05/04/25 17:23 Room Air 05/04/25 17:23 Room Air 05/04/25 17:21 Room Air 05/04/25 17:18 Room Air Laboratory Results Laboratory Results WBC 10.94 K/ul (4.8-10.8) H 05/04/25 17:40 RBC 4.81 M/uL (4.20-5.40) 05/04/25 17:40 Hgb 14.6 g/dl (12.0-16.0) 05/04/25 17:40 Hct 42.3 % (37.0-47.0) 05/04/25 17:40 MCV 87.9 fL (80.0-100.0) 05/04/25 17:40 MCH 30.4 pg (25.0-34.0) 05/04/25 17:40 MCHC 34.5 g/dL (32.0-36.0) 05/04/25 17:40 RDW Std Deviation 41.7 fL (36.4-46.3) 05/04/25 17:40 RDW Coeff of Marry 12.9 % (11.5-14.5) 05/04/25 17:40 Plt Count 136 K/uL (130-400) 05/04/25 17:40 MPV 12.2 fL (9.4-12.4) 05/04/25 17:40 Immature Gran % (Auto) 0.6 % 05/04/25 17:40 Neut % (Auto) 70.4 % 05/04/25 17:40 Lymph % (Auto) 10.3 % 05/04/25 17:40 [place] % (Auto) 18.4 % 05/04/25 17:40 Eos % (Auto) 0.1 % 05/04/25 17:40 Baso % (Auto) 0.2 % 05/04/25 17:40 Neut # (Auto) 7.70 K/uL (1.40-6.50) H 05/04/25 17:40 Lymph # (Auto) 1.13 K/uL (1.20-3.40) L 05/04/25 17:40 [place] # (Auto) 2.01 K/uL (0.11-0.59) H 05/04/25 17:40 Eos # (Auto) 0.01 K/uL (0.00-0.50) 05/04/25 17:40 Baso # (Auto) 0.02 K/uL (0.00-0.20) 05/04/25 17:40 Immature Gran # (Auto) 0.07 K/uL (0.01-0.20) 05/04/25 17:40 RBC Morphology Unremarkable 05/04/25 17:40 PT 11.0 Seconds (9.0-12.0) 05/04/25 18:02 INR 1.0 (0.9-1.1) 05/04/25 18:02 APTT 27 Seconds (21-31) 05/04/25 18:02 PTT Ratio 1.0 05/04/25 18:02 Sodium 130 mmol/L (136-145) L 05/04/25 18:02 Potassium 3.9 mmol/L (3.5-5.1) 05/04/25 18:28 Chloride 94 mmol/L (98-107) L 05/04/25 18:02 Carbon Dioxide 28 mmol/L (21-32) 05/04/25 18:02 Anion Gap 8 (3-11) 05/04/25 18:02 BUN 16 mg/dl (6-23) 05/04/25 18:02 Creatinine 0.78 mg/dl (0.6-1.2) 05/04/25 18:02 Est Cr Clr Drug Dosing 65.4 ml/min 05/04/25 18:02 eGFR 76.73 05/04/25 18:02 BUN/Creatinine Ratio 20.5 (10-20) H 05/04/25 18:02 Glucose 129 mg/dl (70-99(Fasting)) H 05/04/25 18:02 Lactate 1.6 mmol/L (0.4-2.0) 05/04/25 18:02 Calcium 9.6 mg/dl (8.6-10.3) 05/04/25 18:02 Phosphorus 2.3 mg/dl (2.5-4.9) L 05/04/25 18:02 Magnesium 2.1 mg/dl (1.7-2.4) 05/04/25 18:02 Total Bilirubin 0.8 mg/dl (0.2-1.0) 05/04/25 18:02 AST 10 U/L (13-39) L 05/04/25 18:28 ALT 17 U/L (7-52) 05/04/25 18:02 Alkaline Phosphatase 75 U/L (34-104) 05/04/25 18:02 Troponin I High Sens 61.1 pg/ml (0-14) H* 05/04/25 19:31 Total Protein 7.1 gm/dl (6.0-8.3) 05/04/25 18:02 Albumin 3.6 gm/dl (3.4-5.0) 05/04/25 18:02 Globulin 3.5 gm/dl (2.5-4.0) 05/04/25 18:02 Albumin/Globulin Ratio 1.0 (0.9-2) 05/04/25 18:02 Lipase 11 U/L (11-82) 05/04/25 18:02 Procalcitonin 5.72 ng/ml (0-0.5) H 05/04/25 17:40 Urine Color Yellow 05/04/25 20:56 Urine Appearance Turbid (Clear) A 05/04/25 20:56 Urine pH 6.5 (4.5-7.5) 05/04/25 20:56 Ur Specific [place] 1.039 (1.000-1.030) H 05/04/25 20:56 Urine Protein 2+ (Negative) H 05/04/25 20:56 Urine Glucose (UA) Negative (Negative) 05/04/25 20:56 Urine Ketones 1+ (Negative) H 05/04/25 20:56 Urine Blood 3+ (Negative) H 05/04/25 20:56 Urine Nitrite Positive (Negative) A 05/04/25 20:56 Urine Bilirubin Negative (Negative) 05/04/25 20:56 Urine Urobilinogen Negative (Negative) 05/04/25 20:56 Ur Leukocyte Esterase 3+ (Negative) H 05/04/25 20:56 Urine WBC (Auto) >50 /hpf (0-5) H 05/04/25 20:56 Urine RBC (Auto) 11-20 /hpf (0-2) H 05/04/25 20:56 U Hyaline Cast (Auto) 3-5 /lpf (0-2) H 05/04/25 20:56 U Epithel Cells (Auto) 0-2 /hpf (0-2) 05/04/25 20:56 Urine Bacteria (Auto) 4+ (None Seen) H 05/04/25 20:56 Ur Random Sodium 19 mmol/L 05/04/25 20:56 Urine Comment 05/04/25 20:56 Adenovirus (PCR) Not Detected (NotDetected) 05/04/25 17:40 B. pertussis DNA (PCR) Not Detected (NotDetected) 05/04/25 17:40 B.parapertussis DNA PCR Not Detected (NotDetected) 05/04/25 17:40 C. pneumoniae DNA (PCR) Not Detected (NotDetected) 05/04/25 17:40 Coronavirus OC43 (PCR) Not Detected (NotDetected) 05/04/25 17:40 Coronavirus HKU1 (PCR) Not Detected (NotDetected) 05/04/25 17:40 Coronavirus 229E (PCR) Not Detected (NotDetected) 05/04/25 17:40 SARS-CoV-2 (PCR) Not Detected (NotDetected) 05/04/25 17:40 Coronavirus NL63 (PCR) Not Detected (NotDetected) 05/04/25 17:40 Human Metapneumovir PCR Not Detected (NotDetected) 05/04/25 17:40 Influenza Type A (PCR) Not Detected (NotDetected) 05/04/25 17:40 Influenza Type B (PCR) Not Detected (NotDetected) 05/04/25 17:40 M. pneumoniae (PCR) Not Detected (NotDetected) 05/04/25 17:40 Parainfluenza 1 (PCR) Not Detected (NotDetected) 05/04/25 17:40 Parainfluenza 2 (PCR) Not Detected (NotDetected) 05/04/25 17:40 Parainfluenza 3 (PCR) Not Detected (NotDetected) 05/04/25 17:40 Parainfluenza 4 (PCR) Not Detected (NotDetected) 05/04/25 17:40 RSV (PCR) Not Detected (NotDetected) 05/04/25 17:40 Entero/Rhino (PCR) Not Detected (NotDetected) 05/04/25 17:40 Impressions Chest X-Ray 05/04/25 17:18 EXAM: XR chest 1V portable CLINICAL HISTORY: Chest pain, nonspecific TECHNIQUE: An X-ray image of the chest is obtained in AP projection. COMPARISON: No prior studies are available for comparison. FINDINGS: Pulmonary Parenchyma: No evidence of consolidation, collapse, or focal opacities. Hyperinflated lungs, suggesting mild emphysema/COPD. Right basal tiny calcified nodule, likely old healed granuloma. No evidence of pleural effusion or pleural thickening. Heart and Mediastinum: Heart size and shape are normal. No mediastinal widening or masses. No hilar or mediastinal lymphadenopathy. Bony Thorax: Bony thorax appears intact without fractures or deformities. Soft Tissues: Soft tissues overlying the chest wall are unremarkable. IMPRESSION: 1. No acute abnormality. No evidence of pneumonic consolidation, collapse, or focal opacities. 2. Hyperinflated lungs, suggesting mild emphysema/COPD. Electronically signed by Maximino Muñiz 05-04-2025 6:23 PM Abdomen/Pelvis CT 05/04/25 17:23 EXAM: CT abd pelvis IV con only CLINICAL HISTORY: severe nausea, fever, sepsis TECHNIQUE: Non-contrast CT of the abdomen and pelvis was performed, with the following protocol: axial images, and reconstructed coronal and sagittal images. No intravenous contrast was administered. One of the following dose reduction techniques was utilized for this exam: Automated exposure control, adjustment of the mA and/or kV according to patient size, and use of iterative reconstruction. COMPARISON: No prior studies available for comparison. FINDINGS: Abdomen: Liver: The liver is enlarged (20 cm). Normal in size, shape, and density. No focal lesions, or masses were identified. Left hepatic lobe segment II small cyst, measuirng 6mm. Gallbladder and Biliary System: The gallbladder is normal in size and shape. No wall thickening, pericholecystic fluid, or gallstones were identified. Pancreas: Pancreatic head, body, and tail are visualized and appear normal in size and density. No pancreatic masses or calcifications were noted. Spleen: Normal in size, shape, and density. No splenic lesions or masses were identified. Kidneys and Adrenal Glands: Both kidneys are normal in size, shape, and position. Cortical thickness is within normal limits. The right kidney shows subtle hypodense parenchymal areas in its upper, middle, and lower zones. A smaller, similar hypodense parenchymal lesion was seen in the left upper renal zone. Bilateral mild mural thickneing and enhancement of the renal pelves and upper ureters. No renal calculi or hydronephrosis. Adrenal glands are unremarkable. Pelvis: Urinary Bladder: Normal in contour showing mild mural thickening. Uterus: Retroverted uterus. Normal in size and contour. No masses or abnormal thickening. Prominent periuterine venous vascular channels with dilated gonadal veins. Ovaries: Not well visualized, but no gross abnormalities noted. Vagina: Normal in contour and wall thickness. Cervix: No evidence of mass or abnormal thickening. Peritoneal and Retroperitoneal Structures: No free fluid or abnormal fluid collections were identified within the abdomen or pelvis. No lymphadenopathy was noted. Bowel: The visualized bowel loops are normal in caliber and appearance. No evidence of bowel obstruction or wall thickening. No CT evidence of acute appendicitis. Sigmoid and descending colon diverticulosis. No complications. Bones and Soft Tissues: Pelvic bones and soft tissues are unremarkable. No fractures or abnormal masses were identified. L4 1st degree degenerative spondylolithesis. Lumbar spondylosis with Modic III sclerotic degenerative changes of L2-3 opposing endplates. Scanned lower chest cuts showed mild pericardial effusion, mild right pleural effusion, and bilateral basal atelectatic bands. IMPRESSION: 1. Bilateral renal parenchymal patchy hypodensities, more evident on the right side, associated with bilateral mild mural thickening and enhancement of the renal pelves and upper ureters, suggestive of bilateral pyelonephritis. Need clinical and laboratory correlation. 2. Mild urinary bladder mural thickneing, likley mild cystitis. 3. Hepatomegaly, with left hepatic lobe small cyst. 4. Retroverted uterus with prominent periuterine venous vascular channels and dilated gonadal veins, could be suggestive of pelvic congestion syndrome. 5. Sigmoid and descending colon diverticulosis. No complications. Electronically signed by Maximino Muñiz 05-04-2025 8:17 PM Diagnostic Findings EKG as per my interpretation :Rate 90, NSR, normal axis, no ischemia, PVCs
[2025-05-04] MEDS ORDERED: ATROPINE SULFATE 0.1 MG/ML 10ML SYR IV PRN (22:55)
[2025-05-05] MEDS: SODIUM CHLORIDE 0.9% 1,000 ML IV ONE (00:14)
[2025-05-05 01:16] LABS: Sodium 131.0 mmol/L (136-145)
[2025-05-05 01:22] LABS: Creatine Kinase 46.0 U/L (26-192)
[2025-05-05] MEDS ORDERED: MELATONIN 3 MG TAB PO PRN (01:47)
[2025-05-05] MEDS: PROMETHAZINE 6.25 MG/50.25 ML BAG IV PRN (05:06)
[2025-05-05] MEDS: CEFEPIME 2000MG 2,000 MG/20 ML SYR IV SCH (06:01)
[2025-05-05 07:43] LABS: Hematocrit (blood only) 36.5 % (37.0-47.0); Hemoglobin 12.3 g/dl (12.0-16.0); Immature Granulocytes # (auto) 0.05 K/uL (0.01-0.20); Immature Granulocytes % (auto) 0.5 %; Mean Corpuscular Hemoglobin 30.3 pg (25.0-34.0); Mean Corpuscular Volume 89.9 fL (80.0-100.0); Platelet Count 126 K/uL (130-400); RDW Standard Deviation 43.0 fL (36.4-46.3); Red Blood Count 4.06 M/uL (4.20-5.40); White Blood Count 9.65 K/ul (4.8-10.8)
[2025-05-05 08:08] LABS: Hemoglobin A1C 5.5 % (4.5-5.6)
[2025-05-05 08:29] LABS: Anion Gap 7.0 (3-11); Blood Urea Nitrogen 12.0 mg/dl (6-23); Calcium 8.4 mg/dl (8.6-10.3); Carbon Dioxide 24.0 mmol/L (21-32); Chloride 101.0 mmol/L (98-107); Creatinine Clr Calc Pharmacy 61.2 ml/min; Glucose 112.0 mg/dl (70-99(Fasting)); Potassium 3.8 mmol/L (3.5-5.1); Sodium 132.0 mmol/L (136-145)
[2025-05-05] MEDS: MAGNESIUM SULFATE / D5W 1 GM/100 ML BAG IV SCH (08:32)
[2025-05-05] MEDS: prednisoLONE acetate 1% OP SUSP 5 ML BTL OPL SCH ×2 (08:36→19:40)
[2025-05-05] MEDS: CALCIUM CARBONATE 1250MG TAB PO SCH (08:37)
[2025-05-05] MEDS: CHOLECALCIFEROL 25 MCG (1000 UNITS) TAB PO SCH (08:37)
[2025-05-05] MEDS: MULTIVITAMIN TAB PO SCH (08:38)
--- NOTE | 2025-05-05 08:59 | Cardiology Consultation ---
Date of Consultation May 05, 2025 Assessment & Plan (1) Bradycardia: (2) Frequent PVCs: (3) Acute pyelonephritis: (4) Elevated troponin: Plan Patient is an 79-year-old female presented with acute febrile illness pyelonephritis by CT scan. Initial evaluation at urgent care concerning for bradycardia by pulse oximetry testing. EKG and telemetry reflects sinus rhythm with ventricular ectopy and bigeminy. Patient with prior history of such Echocardiogram with preserved wall motion and function mild right ventricular and right atrial dilatation 1. Bradycardia: Artifactual secondary to ventricular bigeminy. Continue telemetry Would request prior extensive cardiovascular workup per patient [facility] 2. Mild elevation troponin possibly secondary to acute illness EKG without ischemic changes 3. Mild right ventricular and right atrial dilatation: Low threshold for PE evaluation given elevated troponin. D-dimer ordered 4. Acute pyelonephritis History of Present Illness Reason for Consultation: Bradycardia, bigeminy Requesting Physician: Megha Santamaria Attending Physician: Kareem Roa MD History of Present Illness Patient is an 79-year-old female followed predominantly through primary care and cardiology in [facility]. Presents this admission noting having felt symptoms of generalized malaise and weakness for approximately 1 week with 1 transient near syncopal event. Febrile throughout complaints with dysuria and abdominal pain. Patient sought evaluation at urgent care and was found to be bradycardic on pulse oximetry and transferred for further evaluation. Telemetry and EKGs at [facility] and in transfer frequent ventricular ectopy and ventricular bigeminy. No bradycardia arrhythmias. Patient denies chest pains, worsening shortness of breath, worsening edema. Generally very active walking 3 miles per day when well. Notes extensive cardiac evaluation due to ventricular ectopy in [facility]. [facility] [address] [place], [place] [id number] This morning feels improved. No current complaints other than mild abdominal discomfort. Telemetry with ventricular ectopy and intermittent bigeminy overnight Allergies Allergy/AdvReac Type Severity Reaction Status Date / Time No Known Allergies Allergy Verified 05/04/25 21:07 Home Medications Medication Instructions Recorded Confirmed Type ascorbic acid (vitamin C) 1,000 mg 1 tab PO TID 05/24/18 05/04/25 History tablet (Vitamin C) calcium carbonate (Calcium 600) 600 mg PO TID 05/24/18 05/04/25 History cholecalciferol (vitamin D3) 50 2,000 unit PO TID 05/24/18 05/04/25 History mcg (2,000 unit) tablet (Vitamin D3) krill 500 mg-omega-3 110 mg-dha 28 1 cap PO QPM 05/24/18 05/04/25 History mg-epa 60 [id number] capsule multivitamin (Multiple Vitamins 1 tab PO QPM 05/24/18 05/04/25 History tablet) vit A 300 mcg-C 200 mg-E 27 1 tab PO QAM 05/24/18 05/04/25 History mg-lutein 2 mg and minerals tablet (Vision Formula (with lutein)) nepafenac 0.3 % eye 1 drops ophthalmic (eye) DAILY #3 06/08/18 05/04/25 Rx drops,suspension (Ilevro) mL atorvastatin 20 mg tablet 20 mg PO HS 05/04/25 05/04/25 History prednisolone acetate 1 % eye 1 drp ophthalmic (eye) QID 05/04/25 05/04/25 History drops,suspension Patient History Medical History Breast cancer R HAD RADIATION Surgical History History of bilateral tubal ligation History of bowel resection GANGRENE AFTER HERNIA SURGERY 2005 History of colonoscopy History of hernia surgery History of lumpectomy of right breast History of tonsillectomy History of tooth extraction H/O eye surgery R RETINA MEMBRANE Family History Family/Other Family hx of colon cancer MATERNAL AUNT Social History Smoking Status: Former smoker Tobacco Type: Cigarettes Smoking End Date: 1967; Second Hand Exposure: No; Do You Dip or Chew Tobacco: No; Hx Alcohol Use: No Hx Substance Use: No Preferred Language: Syrian Communication Ability: Effective 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 Beliefs That Will Affect Care: None Current Living Situation: Spouse Other Information That Helps Us Care for You: No Feels Safe at Home: Yes Safety Concerns: Feels Safe At This Time Assistive Devices: Glasses Review of Systems Review of Systems: All systems reviewed & are unremarkable except as noted in HPI & below Physical Exam Constitutional: WD/WN, vitals as above no acute distress Eyes: PERRL, conjunctivae normal, anicteric sclerae ENMT: external ear and nose normal, oropharynx normal Neck: trachea midline, no thyromegaly Respiratory: normal respiratory effort, lungs clear to auscultation Cardiovascular: Rate/Rhythm: regular rate and regular rhythm Heart Sounds: normal S1 and normal S2 Vessels: normal carotid upstroke, femoral pulses present and radial pulses present; no JVD Extremities: no edema There is audible ventricular ectopy Gastrointestinal (Abdomen): normal bowel sounds, soft, nontender, no hepatosplenomegaly Musculoskeletal: no cyanosis or clubbing, extremities motor strength 5/5 Neurologic: PERRL, EOMI, accommodation nl, no face palsy, no dysarthria Results & Data Vital Signs (Past 12 Hours) Vital Signs Temp Pulse Pulse Resp BP BP Pulse Ox 05/05/25 08:35 99 H 100/55 L 05/05/25 07:06 36.9 C 71 18 97/59 L 95 05/05/25 02:07 36.6 C 72 16 93 05/05/25 01:42 99/55 L 05/05/25 01:14 75 05/04/25 23:20 37.6 C H 86 20 95/57 L 93 05/04/25 22:03 85 23 94 05/04/25 21:45 88 21 93 05/04/25 21:40 82 05/04/25 21:39 83 21 94 05/04/25 21:15 100 H 20 131/82 93 O2 Del Method 05/05/25 08:35 05/05/25 07:06 Room Air 05/05/25 02:07 Room Air 05/05/25 01:42 05/05/25 01:14 05/04/25 23:20 Room Air 05/04/25 22:03 05/04/25 21:45 05/04/25 21:40 05/04/25 21:39 05/04/25 21:15 Laboratory Results Laboratory Results - last 24 hr 05/04/25 05/04/25 05/04/25 17:40 18:02 18:28 WBC 10.94 H RBC 4.81 Hgb 14.6 Hct 42.3 MCV 87.9 MCH 30.4 MCHC 34.5 RDW Std Deviation 41.7 RDW Coeff of Marry 12.9 Plt Count 136 MPV 12.2 Immature Gran % (Auto) 0.6 Neut % (Auto) 70.4 Lymph % (Auto) 10.3 Barnwell % (Auto) 18.4 Eos % (Auto) 0.1 Baso % (Auto) 0.2 Neut # (Auto) 7.70 H Lymph # (Auto) 1.13 L Barnwell # (Auto) 2.01 H Eos # (Auto) 0.01 Baso # (Auto) 0.02 Immature Gran # (Auto) 0.07 RBC Morphology Unremarkable PT 11.0 INR 1.0 APTT 27 PTT Ratio 1.0 Sodium 130 L Potassium TNP 3.9 Chloride 94 L Carbon Dioxide 28 Anion Gap 8 BUN 16 Creatinine 0.78 Est Cr Clr Drug Dosing 65.4 eGFR 76.73 BUN/Creatinine Ratio 20.5 H Glucose 129 H Estimat Average Glucose Hemoglobin A1c Osmolality 271 L Lactate 1.6 Calcium 9.6 Phosphorus 2.3 L Magnesium 2.1 Total Bilirubin 0.8 AST TNP 10 L ALT 17 Alkaline Phosphatase 75 Total Creatine Kinase Troponin I High Sens 60.3 H* Total Protein 7.1 Albumin 3.6 Globulin 3.5 Albumin/Globulin Ratio 1.0 Lipase 11 Procalcitonin 5.72 H TSH 3.313 Urine Color Urine Appearance Urine pH Ur Specific Worth Urine Protein Urine Glucose (UA) Urine Ketones Urine Blood Urine Nitrite Urine Bilirubin Urine Urobilinogen Ur Leukocyte Esterase Urine WBC (Auto) Urine RBC (Auto) U Hyaline Cast (Auto) U Epithel Cells (Auto) Urine Bacteria (Auto) Urine Osmolality Ur Random Sodium Urine Comment Adenovirus (PCR) Not Detected B. pertussis DNA (PCR) Not Detected B.parapertussis DNA PCR Not Detected C. pneumoniae DNA (PCR) Not Detected Coronavirus OC43 (PCR) Not Detected Coronavirus HKU1 (PCR) Not Detected Coronavirus 229E (PCR) Not Detected SARS-CoV-2 (PCR) Not Detected Coronavirus NL63 (PCR) Not Detected Hepatitis C Ab Screen Human Metapneumovir PCR Not Detected Influenza Type A (PCR) Not Detected Influenza Type B (PCR) Not Detected M. pneumoniae (PCR) Not Detected Parainfluenza 1 (PCR) Not Detected Parainfluenza 2 (PCR) Not Detected Parainfluenza 3 (PCR) Not Detected Parainfluenza 4 (PCR) Not Detected RSV (PCR) Not Detected Entero/Rhino (PCR) Not Detected 05/04/25 05/04/25 05/04/25 19:31 20:56 23:04 WBC RBC Hgb Hct MCV MCH MCHC RDW Std Deviation RDW Coeff of Marry Plt Count MPV Immature Gran % (Auto) Neut % (Auto) Lymph % (Auto) Barnwell % (Auto) Eos % (Auto) Baso % (Auto) Neut # (Auto) Lymph # (Auto) Barnwell # (Auto) Eos # (Auto) Baso # (Auto) Immature Gran # (Auto) RBC Morphology PT INR APTT PTT Ratio Sodium 131 L Potassium Chloride Carbon Dioxide Anion Gap BUN Creatinine Est Cr Clr Drug Dosing eGFR BUN/Creatinine Ratio Glucose Estimat Average Glucose Hemoglobin A1c Osmolality Lactate Calcium Phosphorus Magnesium Total Bilirubin AST ALT Alkaline Phosphatase Total Creatine Kinase 46 Troponin I High Sens 61.1 H* 102.1 H* D Total Protein Albumin Globulin Albumin/Globulin Ratio Lipase Procalcitonin TSH Urine Color Yellow Urine Appearance Turbid A Urine pH 6.5 Ur Specific Worth 1.039 H Urine Protein 2+ H Urine Glucose (UA) Negative Urine Ketones 1+ H Urine Blood 3+ H Urine Nitrite Positive A Urine Bilirubin Negative Urine Urobilinogen Negative Ur Leukocyte Esterase 3+ H Urine WBC (Auto) >50 H Urine RBC (Auto) 11-20 H U Hyaline Cast (Auto) 3-5 H U Epithel Cells (Auto) 0-2 Urine Bacteria (Auto) 4+ H Urine Osmolality 348 L Ur Random Sodium 19 Urine Comment Adenovirus (PCR) B. pertussis DNA (PCR) B.parapertussis DNA PCR C. pneumoniae DNA (PCR) Coronavirus OC43 (PCR) Coronavirus HKU1 (PCR) Coronavirus 229E (PCR) SARS-CoV-2 (PCR) Coronavirus NL63 (PCR) Hepatitis C Ab Screen Human Metapneumovir PCR Influenza Type A (PCR) Influenza Type B (PCR) M. pneumoniae (PCR) Parainfluenza 1 (PCR) Parainfluenza 2 (PCR) Parainfluenza 3 (PCR) Parainfluenza 4 (PCR) RSV (PCR) Entero/Rhino (PCR) 05/05/25 06:45 WBC 9.65 RBC 4.06 L Hgb 12.3 Hct 36.5 L MCV 89.9 MCH 30.3 MCHC 33.7 RDW Std Deviation 43.0 RDW Coeff of Marry 12.9 Plt Count 126 L MPV 11.9 Immature Gran % (Auto) 0.5 Neut % (Auto) 70.2 Lymph % (Auto) 9.8 Barnwell % (Auto) 19.2 Eos % (Auto) 0.0 Baso % (Auto) 0.3 Neut # (Auto) 6.77 H Lymph # (Auto) 0.95 L Barnwell # (Auto) 1.85 H Eos # (Auto) 0.00 Baso # (Auto) 0.03 Immature Gran # (Auto) 0.05 RBC Morphology PT INR APTT PTT Ratio Sodium 132 L Potassium 3.8 Chloride 101 Carbon Dioxide 24 Anion Gap 7 BUN 12 Creatinine 0.74 Est Cr Clr Drug Dosing 61.2 eGFR 81.74 BUN/Creatinine Ratio 16.2 Glucose 112 H Estimat Average Glucose 111 Hemoglobin A1c 5.5 Osmolality Lactate Calcium 8.4 L Phosphorus 2.2 L Magnesium Total Bilirubin AST ALT Alkaline Phosphatase Total Creatine Kinase Troponin I High Sens 68.7 H* D Total Protein Albumin Globulin Albumin/Globulin Ratio Lipase Procalcitonin TSH Urine Color Urine Appearance Urine pH Ur Specific Worth Urine Protein Urine Glucose (UA) Urine Ketones Urine Blood Urine Nitrite Urine Bilirubin Urine Urobilinogen Ur Leukocyte Esterase Urine WBC (Auto) Urine RBC (Auto) U Hyaline Cast (Auto) U Epithel Cells (Auto) Urine Bacteria (Auto) Urine Osmolality Ur Random Sodium Urine Comment Adenovirus (PCR) B. pertussis DNA (PCR) B.parapertussis DNA PCR C. pneumoniae DNA (PCR) Coronavirus OC43 (PCR) Coronavirus HKU1 (PCR) Coronavirus 229E (PCR) SARS-CoV-2 (PCR) Coronavirus NL63 (PCR) Hepatitis C Ab Screen Pending Human Metapneumovir PCR Influenza Type A (PCR) Influenza Type B (PCR) M. pneumoniae (PCR) Parainfluenza 1 (PCR) Parainfluenza 2 (PCR) Parainfluenza 3 (PCR) Parainfluenza 4 (PCR) RSV (PCR) Entero/Rhino (PCR) Diagnostic Findings EKG 05/04/2025 Sinus rhythm with ventricular bigeminy, poor R wave progression across the anterior precordial leads Echocardiogram 05/05/2025 The left ventricle is normal in size. There is borderline left hypertrophy EF 60-65%. There are no wall motion abnormalities The right ventricle is mildly dilated and the right atrium is mildly dilated. There is mild mitral and mild to moderate tricuspid insufficiency PG Care Time/CCT Total # of Minutes Spent Total Time Spent with Patient: Total time spent is greater than 50% in coordination of care (as documented) at patient's floor/unit and/or counseling patient: Coding Level of Care Code 85085 IN/OBS CONSULT LVL 5,80M Diagnoses Bradycardia R00.1 Frequent PVCs I49.3 Acute pyelonephritis N10 Elevated troponin R79.89
[2025-05-05] MEDS ORDERED: NON-FORMULARY MEDICATION (Vit A,C And E-Lutein-Minerals [Vision Formula (With Lutein)] 1,0 PO SCH (09:00)
--- NOTE | 2025-05-05 11:18 | Hospitalist Progress Note ---
Date of Service May 05, 2025 Assessment & Plan (1) Acute pyelonephritis: Plan: Acute pyelonephritis Patient presented with fever up to 102 F for last few days Denies any urinary complaints like urgency, increased frequency. CT abdomen/pelvis concerning for bilateral pyelonephritis, mild cystitis. Urinalysis positive for infection. 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 It may contain grammatical, syntax or spelling errors. Any formal questions or concerns about the content, text or information contained within the body of this dictation should be directly addressed to the provider for clarification Admission and Anticipated Discharge Date Admission Date: May 04, 2025 Subjective Patient seen and examined at bedside. She reports that she is feeling much better compared to on admission. She denies palpitation, chest pain or dizziness. Review of Systems Review of Systems: All systems reviewed & are unremarkable except as noted in Subjective Physical Exam Physical Exam: Constitutional: WD/WN, vitals as above, NAD, sitting up in bed, pleasant, conversing easily Respiratory: normal respiratory effort, lungs clear to auscultation, no wheeze, rales, rhonchi. Normal insp/exp effort, no accessory muscle use Cardiovascular: RRR, no murmur, no edema Vessels: no JVD or carotid bruit Chest: normal inspection of chest Abdomen: normal bowel sounds, soft, nontender, no hepatosplenomegaly Musculoskeletal: no cyanosis or clubbing, extremities motor strength 5/5 Skin: no rashes, warm and dry normal turgor Neurologic: PERRL, EOMI, accommodation nl, no face palsy, no dysarthria CN's II- XI intact bilaterally and moves all extremities Psychiatric: A+Ox3, euthymic affect Results & Data Results & Data Vital Signs (Past 12 Hours) Vital Signs Temp Pulse Pulse Resp BP Pulse Ox O2 Del Method 05/05/25 10:19 36.5 C 71 16 111/58 L 94 Room Air 05/05/25 09:59 71 05/05/25 08:35 99 H 100/55 L 05/05/25 07:06 36.9 C 71 18 97/59 L 95 Room Air 05/05/25 02:07 36.6 C 72 16 93 Room Air 05/05/25 01:42 99/55 L 05/05/25 01:14 75 05/04/25 23:20 37.6 C H 86 20 95/57 L 93 Room Air
--- NOTE | 2025-05-05 13:23 | Electrocardiogram Report ---
Test Reason : Blood Pressure : */* mmHG Vent. Rate : 86 BPM Atrial Rate : 86 BPM P-R Int : 136 ms QRS Dur : 70 ms QT Int : 344 ms P-R-T Axes : 87 43 51 degrees QTcB Int : 411 ms Sinus rhythm with frequent Premature ventricular complexes in a pattern of bigeminy Possible Left atrial enlargement Abnormal ECG When compared with ECG of 21-Aug-2009 10:09, Premature ventricular complexes are now Present Confirmed by Mir Retana ([id number]) on 05/05/2025 1:22:48 PM Referred By: REFERRED SELF Confirmed By: Mir Retana
--- NOTE | 2025-05-05 13:27 | Electrocardiogram Report ---
Test Reason : Blood Pressure : */* mmHG Vent. Rate : 91 BPM Atrial Rate : 91 BPM P-R Int : 146 ms QRS Dur : 78 ms QT Int : 352 ms P-R-T Axes : 64 15 47 degrees QTcB Int : 432 ms Sinus rhythm with occasional Premature ventricular complexes Cannot rule out Anterior infarct (cited on or before 04-May-2025) Abnormal ECG When compared with ECG of 04-May-2025 17:15, (unconfirmed) No significant change was found Confirmed by Mir Retana ([id number]) on 05/05/2025 1:27:10 PM Referred By: REFERRED SELF Confirmed By: Mir Retana
[2025-05-05] MEDS: ACETAMINOPHEN 325 MG TAB PO PRN (18:31)
[2025-05-05] MEDS: ATORVASTATIN 20 MG TAB PO SCH (19:42)
[2025-05-06] MEDS: METOPROLOL TARTRATE 1 MG/ML VIAL IV STA ×3 (00:39→03:47)
[2025-05-06] MEDS: HEPARIN 25000 UNIT/500 ML D5W 25,000 UNITS/500 ML BAG IV SCH (01:33)
[2025-05-06 01:36] LABS: Hematocrit (blood only) 36.6 % (37.0-47.0); Hemoglobin 12.3 g/dl (12.0-16.0); Immature Granulocytes # (auto) 0.05 K/uL (0.01-0.20); Immature Granulocytes % (auto) 0.6 %; Mean Corpuscular Hemoglobin 30.3 pg (25.0-34.0); Mean Corpuscular Volume 90.1 fL (80.0-100.0); Platelet Count 136 K/uL (130-400); RDW Standard Deviation 43.0 fL (36.4-46.3); Red Blood Count 4.06 M/uL (4.20-5.40); White Blood Count 7.94 K/ul (4.8-10.8)
[2025-05-06] MEDS: Heparin IV Adult Wt-Based Low-Dose *NO* INITIAL Bolus Protocol IV STA (01:41)
[2025-05-06 01:50] LABS: Anion Gap 6.0 (3-11); Blood Urea Nitrogen 11.0 mg/dl (6-23); Calcium 8.9 mg/dl (8.6-10.3); Carbon Dioxide 25.0 mmol/L (21-32); Chloride 101.0 mmol/L (98-107); Creatinine Clr Calc Pharmacy 59.6 ml/min; Glucose 123.0 mg/dl (70-99(Fasting)); Potassium 3.6 mmol/L (3.5-5.1); Sodium 132.0 mmol/L (136-145)
[2025-05-06 02:07] LABS: INR 1.0 (0.9-1.1); Prothrombin Time 11.2 Seconds (9.0-12.0)
[2025-05-06] MEDS: SODIUM CHLORIDE 0.9% 500 ML IV ONE (03:13)
[2025-05-06] MEDS: POTASSIUM CHLORIDE CRTAB 20 MEQ TABCR PO STA (04:14)
[2025-05-06 04:42] LABS: Magnesium 2.1 mg/dl (1.7-2.4)
[2025-05-06] MEDS ORDERED: SODIUM PHOSPHATE 3 MMOL/1 ML INFUSION IV STA (05:15)
[2025-05-06] MEDS: SODIUM PHOSPHATE 30 MMOL in SODIUM CHLORIDE 0.9% 500 ML IV ONE (06:24)
--- NOTE | 2025-05-06 07:21 | Communication Note ---
Date of Service: May 06, 2025 Last night Patient went to [facility]. Initially felt fluttering in chest but later asymptomatic. Received iv Lopressor and placed on iv heparin low dose and made her NPO.. After third dose of iv Lopressor 2.5mg patient converted to sinus rhythm. D dimer elevated ,ordered ct chest PE study. Notified Am providers.
[2025-05-06] MEDS: OPTIRAY 320 125ml IV ONE (07:46)
--- NOTE | 2025-05-06 08:14 | Hospitalist Progress Note ---
Date of Service May 06, 2025 Assessment & Plan (1) Acute pyelonephritis: Plan: Acute pyelonephritis Patient presented with fever up to 102 F for last few days Denies any urinary complaints like urgency, increased frequency. CT abdomen/pelvis concerning for bilateral pyelonephritis, mild cystitis. Urinalysis positive for infection. Urine culture positive for E. coli; sensitive to ceftriaxone, Augmentin. Blood cultureno growth in 24 hours Will change antibiotic to ceftriaxone; plan to treat for total of 10 to 14 days for pyelonephritis. Atrial fibrillation with RVR Frequent PVCs EKG on admission shows SR with PVCs Patient had an episode of atrial fibrillation with RVR overnight on 05/06; converted spontaneously to sinus rhythm. Echocardiogram shows EF of 60 to 65%; no wall motion abnormalities CTA chest- no PE Continue on heparin; plan to switch over to Eliquis at 9 pm tonight. Stop heparin at 7 pm. Started on low dose metoprolol Monitor on telemetry Hyponatremia - serum sodium of 132 on admission; urine sodium and osmolarity suggestive of hypovolemic hyponatremia. 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 It may contain grammatical, syntax or spelling errors. Any formal questions or concerns about the content, text or information contained within the body of this dictation should be directly addressed to the provider for clarification Admission and Anticipated Discharge Date Admission Date: May 04, 2025 Subjective Overnight, patient went into atrial fibrillation with RVR; was started on IV heparin for anticoagulation. Converted to sinus rhythm in a.m. Review of Systems Review of Systems: All systems reviewed & are unremarkable except as noted in Subjective Physical Exam Physical Exam: Constitutional: WD/WN, vitals as above, NAD, sitting up in bed, pleasant, conversing easily Respiratory: normal respiratory effort, lungs clear to auscultation, no wheeze, rales, rhonchi. Normal insp/exp effort, no accessory muscle use Cardiovascular: RRR, no murmur, no edema Vessels: no JVD or carotid bruit Chest: normal inspection of chest Abdomen: normal bowel sounds, soft, nontender, no hepatosplenomegaly Musculoskeletal: no cyanosis or clubbing, extremities motor strength 5/5 Skin: no rashes, warm and dry normal turgor Neurologic: PERRL, EOMI, accommodation nl, no face palsy, no dysarthria CN's II- XI intact bilaterally and moves all extremities Psychiatric: A+Ox3, euthymic affect Results & Data Results & Data Vital Signs (Past 12 Hours) Vital Signs Temp Pulse Pulse Resp BP BP Pulse Ox 05/06/25 07:21 67 05/06/25 04:23 36.5 C 16 94 05/06/25 04:21 75 95/61 L 05/06/25 03:47 130 H 103/61 05/06/25 03:36 140 H 103/61 05/06/25 03:00 92/59 L 05/06/25 02:32 104/58 L 05/06/25 02:00 133 H 16 96/62 L 94 05/06/25 01:40 130 H 96/61 L 05/06/25 01:27 122 H 18 96/61 L 93 05/06/25 01:13 136 H 05/06/25 01:03 126 H 104/64 93 05/06/25 00:54 133 H 104/64 05/06/25 00:39 133 H 115/73 05/06/25 00:35 133 H 18 115/73 93 05/06/25 00:09 36.7 C 43 L 17 107/58 L 90 05/05/25 20:40 36.9 C 72 17 102/60 92 O2 Del Method 05/06/25 07:21 05/06/25 04:23 Room Air 05/06/25 04:21 05/06/25 03:47 05/06/25 03:36 05/06/25 03:00 05/06/25 02:32 05/06/25 02:00 Room Air 05/06/25 01:40 05/06/25 01:27 Room Air 05/06/25 01:13 05/06/25 01:03 Room Air 05/06/25 00:54 05/06/25 00:39 05/06/25 00:35 Room Air 05/06/25 00:09 Room Air 05/05/25 20:40 Room Air
--- NOTE | 2025-05-06 08:41 | CT Scan Report ---
Clinical history: Rule out pulmonary embolism Technique: Axial computed tomography images were obtained of the chest after the administration of intravenous contrast according to the CT angiogram protocol Findings: There is no definite sign of pulmonary embolism. There are mild irregular opacities in the lung apices, likely due to pleural-parenchymal scarring. There is a small calcified granuloma in the left lung apex. There is a calcified granuloma in the right lower lobe also. There is bilateral lower lobe atelectasis. There is mild linear atelectasis in the lingula also. There is no definite sign of pneumonia. There are small bilateral pleural effusions, right greater than left. There is no pneumothorax. There is peripheral bronchial mucus plugging in both lower lobes There is no mediastinal, hilar, or axillary adenopathy. The thoracic aorta appears unremarkable with no sign of aneurysm or dissection. There is no pericardial effusion The visualized upper abdomen appears unremarkable. No fracture is seen. No focal osseous lesion is evident Impression: 1. No definite sign of pulmonary embolism 2. Small bilateral pleural effusions and bilateral lower lobe atelectasis 3. Peripheral bronchial mucus plugging in both lower lobes Electronically signed by John Queen 05-06-2025 08:41 AM
[2025-05-06 09:00] LABS: ANTI-Xa, UFH(UnfractionatedHep < 0.10 IU/ml (0.3-0.7)
[2025-05-06] MEDS: SODIUM CHLORIDE 0.9% 500 ML IV SCH (09:30)
--- NOTE | 2025-05-06 09:44 | Cardiology Progress Note ---
Date of Service May 06, 2025 Assessment & Plan (1) Bradycardia: Plan: Artifactual secondary to ventricular bigeminy (2) Frequent PVCs: (3) Acute pyelonephritis: (4) Elevated troponin: (5) Paroxysmal atrial fibrillation: Plan Patient is an 79-year-old female presented with acute febrile illness pyelonephritis by CT scan. Initial evaluation at urgent care concerning for bradycardia by pulse oximetry testing. EKG and telemetry reflects sinus rhythm with ventricular ectopy and bigeminy. Patient with prior history of such Echocardiogram with preserved wall motion and function mild right ventricular a nd right atrial dilatation 1. Bradycardia: Artifactual secondary to ventricular bigeminy. Continue telemetry Would request prior extensive cardiovascular workup per patient [facility] 2. Mild elevation troponin possibly secondary to acute illness EKG without ischemic changes 3. Mild right ventricular and right atrial dilatation: Low threshold for PE evaluation given elevated troponin. D-dimer ordered 4. Acute pyelonephritis 05/06/2025 Transient atrial fibrillation overnight with spontaneous conversion with IV metoprolol. Ventricular ectopy have is reduced no bradycardia arrhythmias. 1. Paroxysmal atrial fibrillation: Likely incited by acute illness. Would begin low-dose beta-el with metoprolol succinate 12.5 mg twice per day given soft blood pressure. Patient warrants anticoagulation as ordered. If no procedures planned would transition heparin IV to oral Eliquis 2. Bradycardia: Artifactual secondary to ventricular ectopy, bigeminy. No pauses or bradycardia arrhythmias observed 3. Acute pyelonephritis, E. coli symptomatically improving 4. Mild right ventricular enlargement, right atrial dilatation likely secondary to underlying pulmonary issues no evidence of PE on CAT scan Admission and Anticipated Discharge Date Admission Date: May 04, 2025 Subjective Patient was seen and personally examined, chart, medications, telemetry reviewed. Episode of last evening noted. Patient feels well this morning. Fever and abdominal pain discomfort have improved. Appetite has returned no further nausea. Last evening asymptomatically lapsed into atrial fibrillation flutter with rapid response. Converted to sinus rhythm with IV metoprolol. Currently anticoagulated with heparin. Telemetry with sinus rhythm this morning and reduced ventricular ectopy No bleeding difficulties Review of Systems Review of Systems: All systems reviewed & are unremarkable except as noted in Subjective Physical Exam Constitutional: WD/WN, vitals as above no acute distress Eyes: PERRL, conjunctivae normal, anicteric sclerae ENMT: external ear and nose normal, oropharynx normal Neck: trachea midline, no thyromegaly Respiratory: normal respiratory effort, lungs clear to auscultation Cardiovascular: Rate/Rhythm: regular rate and regular rhythm Heart Sounds: normal S1 and normal S2 Vessels: normal carotid upstroke, femoral pulses present and radial pulses present; no JVD Extremities: no edema Gastrointestinal (Abdomen): normal bowel sounds, soft, nontender, no hepatosplenomegaly Musculoskeletal: no cyanosis or clubbing, extremities motor strength 5/5 Neurologic: PERRL, EOMI, accommodation nl, no face palsy, no dysarthria Results & Data Vital Signs (Past 12 Hours) Vital Signs Temp Pulse Pulse Resp BP BP Pulse Ox 05/06/25 09:11 36.5 C 73 18 95/58 L 95 05/06/25 07:21 67 05/06/25 04:23 36.5 C 16 94 05/06/25 04:21 75 95/61 L 05/06/25 03:47 130 H 103/61 05/06/25 03:36 140 H 103/61 05/06/25 03:00 92/59 L 05/06/25 02:32 104/58 L 05/06/25 02:00 133 H 16 96/62 L 94 05/06/25 01:40 130 H 96/61 L 05/06/25 01:27 122 H 18 96/61 L 93 05/06/25 01:13 136 H 05/06/25 01:03 126 H 104/64 93 05/06/25 00:54 133 H 104/64 05/06/25 00:39 133 H 115/73 05/06/25 00:35 133 H 18 115/73 93 05/06/25 00:09 36.7 C 43 L 17 107/58 L 90 O2 Del Method 05/06/25 09:11 Room Air 05/06/25 07:21 05/06/25 04:23 Room Air 05/06/25 04:21 05/06/25 03:47 05/06/25 03:36 05/06/25 03:00 05/06/25 02:32 05/06/25 02:00 Room Air 05/06/25 01:40 05/06/25 01:27 Room Air 05/06/25 01:13 05/06/25 01:03 Room Air 05/06/25 00:54 05/06/25 00:39 05/06/25 00:35 Room Air 05/06/25 00:09 Room Air Laboratory Results Laboratory Results - last 24 hr 05/05/25 05/06/25 05/06/25 06:45 01:19 01:19 WBC 7.94 RBC 4.06 L Hgb 12.3 Hct 36.6 L MCV 90.1 MCH 30.3 MCHC 33.6 RDW Std Deviation 43.0 RDW Coeff of Marry 12.9 Plt Count 136 MPV 11.0 Immature Gran % (Auto) 0.6 Neut % (Auto) 65.2 Lymph % (Auto) 18.6 [place] % (Auto) 14.7 Eos % (Auto) 0.4 Baso % (Auto) 0.5 Neut # (Auto) 5.17 Lymph # (Auto) 1.48 [place] # (Auto) 1.17 H Eos # (Auto) 0.03 Baso # (Auto) 0.04 Immature Gran # (Auto) 0.05 PT 11.2 INR 1.0 D-Dimer 2170 H* Cancelled Heparin Anti-Xa, Unfract Sodium 132 L Potassium 3.6 Chloride 101 Carbon Dioxide 25 Anion Gap 6 BUN 11 Creatinine 0.76 Est Cr Clr Drug Dosing 59.6 eGFR 79.16 BUN/Creatinine Ratio 14.5 Glucose 123 H Calcium 8.9 Phosphorus 1.6 L Magnesium 2.1 Troponin I High Sens 35.8 H D Hepatitis C Ab Screen Negative 05/06/25 07:29 WBC RBC Hgb Hct MCV MCH MCHC RDW Std Deviation RDW Coeff of Marry Plt Count MPV Immature Gran % (Auto) Neut % (Auto) Lymph % (Auto) [place] % (Auto) Eos % (Auto) Baso % (Auto) Neut # (Auto) Lymph # (Auto) [place] # (Auto) Eos # (Auto) Baso # (Auto) Immature Gran # (Auto) PT INR D-Dimer Heparin Anti-Xa, Unfract < 0.10 L Sodium Potassium Chloride Carbon Dioxide Anion Gap BUN Creatinine Est Cr Clr Drug Dosing eGFR BUN/Creatinine Ratio Glucose Calcium Phosphorus Magnesium Troponin I High Sens Hepatitis C Ab Screen PG Care Time/CCT Total # of Minutes Spent Total Time Spent with Patient: Total time spent is greater than 50% in coordination of care (as documented) at patient's floor/unit and/or counseling patient: Coding Level of Care Code 04748 SUB INP/OBS CARE 3/50MIN Diagnoses Bradycardia R00.1 Frequent PVCs I49.3 Acute pyelonephritis N10 Elevated troponin R79.89 Paroxysmal atrial fibrillation I48.0
[2025-05-06] MEDS: HEPARIN SOD (PORCINE) 1000 UNIT/ML IV ONE (10:24)
[2025-05-06] MEDS: METOPROLOL SUCC 25MG EXT REL TAB PO SCH (10:28)
[2025-05-06] MEDS: cefTRIAXone SODIUM 2,000 MG/50 ML BAG IV SCH (13:53)
[2025-05-06 16:22] LABS: ANTI-Xa, UFH(UnfractionatedHep 0.35 IU/ml (0.3-0.7)
[2025-05-06] MEDS: ADVANCED PROBIOTIC 625 MG CAPSULE PO SCH (17:57)
[2025-05-06] MEDS: STOP ORDER: HEPARIN INFUSION ONE (19:49)
[2025-05-06] MEDS: APIXABAN 5 MG TABLET PO SCH (21:18)
[2025-05-07 06:35] LABS: Hematocrit (blood only) 35.1 % (37.0-47.0); Hemoglobin 12.2 g/dl (12.0-16.0); Mean Corpuscular Hemoglobin 31.2 pg (25.0-34.0); Mean Corpuscular Volume 89.8 fL (80.0-100.0); Platelet Count 187 K/uL (130-400); RDW Standard Deviation 42.9 fL (36.4-46.3); Red Blood Count 3.91 M/uL (4.20-5.40); White Blood Count 5.99 K/ul (4.8-10.8)
[2025-05-07 07:08] LABS: Anion Gap 4.0 (3-11); Blood Urea Nitrogen 8.0 mg/dl (6-23); Calcium 9.0 mg/dl (8.6-10.3); Carbon Dioxide 30.0 mmol/L (21-32); Chloride 103.0 mmol/L (98-107); Creatinine Clr Calc Pharmacy 80.1 ml/min; Glucose 117.0 mg/dl (70-99(Fasting)); Potassium 4.3 mmol/L (3.5-5.1); Sodium 137.0 mmol/L (136-145)
[2025-05-07 07:10] LABS: Immature Granulocytes # (auto) 0.08 K/uL (0.01-0.20); Immature Granulocytes % (auto) 1.3 %
--- NOTE | 2025-05-07 09:51 | Cardiology Progress Note ---
Date of Service May 07, 2025 Assessment & Plan (1) Acute pyelonephritis: (2) Frequent PVCs: (3) Paroxysmal atrial fibrillation: (4) Elevated troponin: (5) Aortic atherosclerosis: (6) Coronary atherosclerosis: Plan Very pleasant 79-year-old female admitted on May 04, 2025, presenting with malaise, weakness, fatigue, decreased appetite, fever, urinary urgency and frequency. Workup positive for bilateral pyelonephritis, mild cystitis. Urine culture positive for E. coli. Blood cultures without growth. Cardiology consulted due to initial concerns for significant bradycardia, via pulse oximetry at Urgent Care with EKG and telemetry revealing ventricular ectopy and bigeminy. Resting echocardiography with preserved LV systolic function. Bradycardia felt to be artifactual, secondary to ventricular ectopy Hospital course complicated by atrial fibrillation with a rapid ventricular response on May 06, 2025, spontaneously converting back to sinus rhythm following administration of IV Lopressor. Oral beta-el therapy prescribed in the form of metoprolol succinate 12.5 mg twice per day prescribed along with anticoagulation, transitioning heparin to apixaban (Eliquis) 5 mg twice per day. [id number] Score is 4 points (age greater than 75, female sex, aortic and coronary plaque observed via CT imaging this admission) Mildly elevated high-sensitivity troponin I (60.3 -> 61.1 -> 102.1 -> 68.7 -> 35.8 pg/mL). Probably secondary to acute illness. EKG without acute change. Resting echocardiography with preserved LV systolic function without regional wall motion abnormalities. Noting elevated troponin and imaging with coronary atherosclerosis, recommend outpatient stress testing. Continue statin. Holding off on antiplatelet therapy noting utilization of apixaban. Patient's primary care physician and cardiology provider are in [place], [place]. Patient requests establishing care locally with Dr. oRmeo Chacko post hospitalization. Office contact, arrangements being made. Patient lives in [place], [place] typically from June to January. Addendum: Patient scheduled to see Dr. Chacko at [facility] on 05/29/2025 at 10:00 AM. Admission and Anticipated Discharge Date Admission Date: May 04, 2025 Supervising Physician Co-Signing Physician Notes Attending attestation: Case reviewed with the advanced practitioner. I have personally performed a history and physical examination on the patient. I have reviewed the advanced practitioner's documentation on the date of service referenced in note, and I agree with, and take responsibility for the plan of care. I spent a total of 20 minutes coordinating, documenting, and providing care for this patient excluding time spent in the performance of separately billed services or time spent by another provider. Alonso Calabrese, Subjective Patient seen and examined. Chart, medications, and telemetry reviewed. at bedside. Patient feeling significantly better this morning. Afebrile. No nausea. Appetite has improved. Denies chest pain, palpitations, or shortness of breath. Telemetry sinus in the 60s with occasional premature ventricular complexes in singles and rare couplets. No further atrial fibrillation (lapsed into PAF overnight on 05/06, returning to sinus rhythm following IV 2.5 mg IV Lopressor x 3) Review of Systems Review of Systems: Denies significant epistaxis, hemoptysis, hematuria, vaginal bleeding, melena, or hematochezia Complete review of systems is otherwise as stated above, negative, or noncontributory Physical Exam Physical Exam: General: A&Ox3. NAD. HENT: Normocephalic. Atraumatic. Eyes: PER. Conjunctiva pink, sclera clear. Neck: No carotid bruits. No JVD. Heart: Regular with occasional ectopic beat. Grade II systolic murmur at the lower left sternal border Lungs: Diminished. Decreased. Clear to auscultation. Abdomen: +BS. Soft. Nontender. No masses or organomegaly. Extremities: No clubbing, cyanosis, or edema. Limited neurological examination is without focal deficits. Pulses: Posterior tibial=2/4. Results & Data Vital Signs (Past 12 Hours) Vital Signs Temp Pulse Pulse Resp BP Pulse Ox O2 Del Method 05/07/25 07:25 36.6 C 68 21 123/67 95 Room Air 05/07/25 07:00 63 05/07/25 04:00 36.8 C 77 18 113/64 93 Room Air 05/07/25 02:42 67 05/06/25 23:34 36.8 C 71 18 116/65 94 Room Air Laboratory Results CBC 05/07/25 Range/Units 06:00 WBC 5.99 (4.8-10.8) K/ul RBC 3.91 L (4.20-5.40) M/uL Hgb 12.2 (12.0-16.0) g/dl Hct 35.1 L (37.0-47.0) % Plt Count 187 (130-400) K/uL Neut # (Auto) 3.80 (1.40-6.50) K/uL Lymph # (Auto) 1.41 (1.20-3.40) K/uL [place] # (Auto) 0.58 (0.11-0.59) K/uL Eos # (Auto) 0.09 (0.00-0.50) K/uL Baso # (Auto) 0.03 (0.00-0.20) K/uL Comprehensive Metabolic Panel 05/07/25 Range/Units 06:00 Sodium 137 (136-145) mmol/L Potassium 4.3 (3.5-5.1) mmol/L Chloride 103 (98-107) mmol/L Carbon Dioxide 30 (21-32) mmol/L BUN 8 (6-23) mg/dl Creatinine 0.62 (0.6-1.2) mg/dl Glucose 117 H (70-99(Fasting)) mg/dl Calcium 9.0 (8.6-10.3) mg/dl Intake and Output 05/06/25 05/07/25 05/07/25 22:59 06:59 14:59 Intake Total 832.667 / 2518.801 0 / 2518.801 Output Total Balance 831.667 / 2317.801 0 / 2317.801 Intake: IV 712.667 / 1898.801 Heparin 02053 Unit/500 ml D5w 212.667 / 338.801 25,000 units In 500 ml @ 1,000 UNITS/HR 20 mls/hr IV .Q24H RADHA Rx#:[id number] Sodium Chloride 0.9% 500 ml @ 500 / 1000 125 mls/hr IV .Q4H RADHA Rx#: [id number] Oral 120 / 620 0 / 620 Output: # Bowel Movements Other: # Unmeasured Voids 1 Weight 79.379 kg Diagnostic Findings May 05, 2025 TTE Summary ([facility], Dr. Chacko): Normal size left ventricle. Borderline concentric LVH. Normal LV wall motion. EF 60 to 65%. Mildly dilated right ventricle. Mild aortic valve sclerosis without significant stenosis. Mild mitral regurgitation. Mild to moderate tricuspid regurgitation. Doppler findings do not suggest pulmonary hypertension. May 06, 2025 Chest CTA: There is no definite sign of pulmonary embolism. There are mild irregular opacities in the lung apices, likely due to pleural- parenchymal scarring. There is a small calcified granuloma in the left lung apex. There is a calcified granuloma in the right lower lobe also. There is bilateral lower lobe atelectasis. There is mild linear atelectasis in the lingula also. There is no definite sign of pneumonia. There are small bilateral pleural effusions, right greater than left. There is no pneumothorax. There is peripheral bronchial mucus plugging in both lower lobes. There is no mediast inal, hilar, or axillary adenopathy. The thoracic aorta appears unremarkable with no sign of aneurysm or dissection. There is no pericardial effusion. The visualized upper abdomen appears unremarkable. No fracture is seen. No focal osseous lesion is evident . PG Care Time/CCT Total # of Minutes Spent Total Time Spent with Patient: Total time spent is greater than 50% in coordination of care (as documented) at patient's floor/unit and/or counseling patient: I spent a total of 45 minutes on the date of service in preparation, delivery, and documentation of the care provided to this patient excluding any time spent in the performance of separately billed services. This visit was a split-shared visit with the substantive portion of the medical decision making performed by the supervising crown ceramist/billing provider. Please refer to Dr. Calabrese's documentation. Coding Level of Care Code 92352 SUB INP/OBS CARE 3/50MIN Diagnoses Acute pyelonephritis N10 Frequent PVCs I49.3 Paroxysmal atrial fibrillation I48.0 Elevated troponin R79.89 Aortic atherosclerosis I70.0 Coronary atherosclerosis I25.10 Time Spent (min) 65 Comment 45 minutes spent by Ronak Hernandez PA-C, [address] Calabrese
[2025-05-07 10:52] VITALS: BP 117/68; PULSE 70; RESP 16; TEMP 98.1; O2SAT 94
--- NOTE | 2025-05-07 12:06 | Discharge Summary ---
Date of Service May 07, 2025 Admission HPI Per Admitting Provider History obtained from patient and records. Patient is a "snowbird" who maintains 2 residences ([place] and [place]) Medical history significant for right breast cancer status post surgery/radiation, past tobacco abuse. Last confinement 2002 under General Surgery service for SBO secondary to incarcerated inguinal hernia status post surgery. Patient not feeling well the last 4 days. Achy upper abdominal pain with nausea, no emesis. No dysuria symptoms. Denies chest pain, SOB, cough. Poor appetite. No recollection of recent tick bites. Temperature of 102 at home. Patient seen at local urgent care center. Noted to have a heart rate of 30s to 40s. Patient directed to ER for evaluation. IV cefepime administered at the ER. 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 Admission Exam Per Admitting Provider GENERAL: Comfortable, pleasant, no respiratory distress SKIN: Normal color, warm HEENT: [place] palpebral conjunctivae, no ptosis, dry buccal mucosa NECK : Supple, no tenderness CHEST : CTA, no tenderness HEART : RRR, no obvious murmurs ABDOMEN: Some distention, no tenderness EXTREMITIES : No LE swelling/tenderness, palpable pulses, no other conspicuous deformities noted NEUROLOGIC : Coherent, no facial asymmetry, no other gross focality Principal Diagnosis Acute pyelonephritis Atrial fibrillation with RVR Frequent PVCs Discharge Exam Constitutional: WD/WN, vitals as above, NAD, sitting up in bed, pleasant, conversing easily Respiratory: normal respiratory effort, lungs clear to auscultation, no wheeze, rales, rhonchi. Normal insp/exp effort, no accessory muscle use Cardiovascular: RRR, no murmur, no edema Vessels: no JVD or carotid bruit Chest: normal inspection of chest Abdomen: normal bowel sounds, soft, nontender, no hepatosplenomegaly Musculoskeletal: no cyanosis or clubbing, extremities motor strength 5/5 Skin: no rashes, warm and dry normal turgor Neurologic: PERRL, EOMI, accommodation nl, no face palsy, no dysarthria CN's II- XI intact bilaterally and moves all extremities Psychiatric: A+Ox3, euthymic affect Discharge Data Allergies Allergy/AdvReac Type Severity Reaction Status Date / Time No Known Allergies Allergy Verified 05/04/25 21:07 Consultations 05/04/25 20:31 ED Decision to Admit Stat 05/04/25 22:18 Consult Cardiology Routine Ordered Studies 05/04/25 17:23 CT Abd and Pelvis [CT abd pelvis IV con only] Stat 05/06/25 05:15 CT angio chest PE protocol Urgent Hospital Course (1) Acute pyelonephritis: Acute pyelonephritis Patient presented with fever up to 102 F for last few days Denies any urinary complaints like urgency, increased frequency. CT abdomen/pelvis concerning for bilateral pyelonephritis, mild cystitis. Urinalysis positive for infection. Urine culture positive for E. coli; sensitive to ceftriaxone, Augmentin. Blood cultureno growth in 48 hours Patient was treated with IV antibiotic during the hospitalization; switch over to Augmentin for 7 more days to complete the antibiotic course. Patient was feeling much better at the time of the discharge with no fever/chill in the last 48 hours, tolerating diet well and increased energy. Atrial fibrillation with RVR Frequent PVCs EKG on admission shows SR with PVCs Patient had an episode of atrial fibrillation with RVR overnight on 05/06; converted spontaneously to sinus rhythm. Echocardiogram shows EF of 60 to 65%; no wall motion abnormalities CTA chest- no PE Patient was discharged on low-dose metoprolol twice daily and Eliquis twice a day as per cardiology recommendation. Hyponatremia - serum sodium of 132 on admission; urine sodium and osmolarity suggestive of hypovolemic hyponatremia. Improved with IV fluids Please note the above document was generated using voice recognition software. It may contain grammatical, syntax or spelling errors. Any formal questions or concerns about the content, text or information contained within the body of this dictation should be directly addressed to the provider for clarification Total Time Total Time Spent Total Time Spent (In Minutes): 45 Total Time Includes: Examination of the Patient, Discharge Planning, Medication Reconciliation, Communication With Other Providers and Other Discharge Plan Discharge Items Patient Disposition: Home - Self-Care Reason For Visit: TRANSIENT MICHELE, COMP UTI Discharge Diagnosis: Complicated UIT Condition on Discharge: Fair Activity: Resume your previous activity Non-emergency contact: Primary Care Provider Call non-emergency contact if: you have any medication questions and your symptoms worsen Follow-up/Referrals: Eddie Salinas MD [Primary Care Provider] - Romeo Chacko MD [Physician] - (Date & Time 05/29/2025 10:00 AM Provider: Romeo Chacko MD Cardiology, [facility] ) Tomasa Byrd DO [Outside Practitioners] - (Date & Time 05/11/2025 2:00 PM Provider: Tomasa Byrd DO Family Practice [facility] ) Diet: Regular Addtl Attending Provider Instructions: You were admitted to the hospital due to an acute UTI. You were treated with antibiotic during hospitalization. To complete the antibiotic course; you are prescribed Augmentin to be taken twice a day for 7 more days. Please take probiotics while you are on the antibiotic. You are found to have irregular heart rhythm called atrial fibrillation. You are prescribed following medication; Take metoprolol 12.5 mg twice a day Take Eliquis 5 mg twice a day You will be set up with a primary care doctor; please follow-up with them. You also have been set up cardiology appointment with Dr. Chacko at [facility] on May 29, 2025 at 10 AM Pending Studies at Discharge: No Stand-Alone Forms: My [facility] [place] xaitment, Smoking Cessation Medications and DC Order Prescriptions: New metoprolol succinate 25 mg Tablet Extended Release 24 Hr 12.5 mg PO BID 30 Days Qty: 30 0RF Eliquis 5 mg Tablet 5 mg PO BID Qty: 60 0RF Advanced Probiotic 625 mg (10 billion cell) Capsule 2 cap PO DAILY 7 Days Qty: 14 0RF amoxicillin-pot clavulanate 875-125 mg tablet 1 tab PO BID 7 Days Qty: 14 0RF Continued multivitamin [Multiple Vitamins] Tablet 1 tab PO QPM ascorbic acid (vitamin C) [Vitamin C] 1,000 mg Tablet 1 tab PO TID calcium carbonate [Calcium 600] 600 mg calcium (1,500 mg) Tablet 600 mg PO TID Vision Formula (with lutein) 1,000 unit-200 mg-60 unit-2 mg Tablet 1 tab PO QAM cholecalciferol (vitamin D3) [Vitamin D3] 2,000 unit Tablet 2,000 unit PO TID [id number] mg Capsule 1 cap PO QPM Ilevro 0.3 % drops,suspension 1 drops OP DAILY Qty: 3 0RF Rx Instructions: in operative eye atorvastatin 20 mg tablet 20 mg PO HS prednisolone acetate 1 % drops,suspension 1 drp ophthalmic (eye) QID Rx Instructions: left eye Discharge Orders: Discharge Order (Routine); Ordered 05/07/25 Ordered By: Kareem Roa Admission Data Admit Date/Time: 05/04/25 21:51 Attending Provider: Kareem Roa Admit Provider: Sohan Mock Primary Care Provider: Eddie Salinas Other Providers: Sohan Mock; Rosa M Bradley; Alonso Calabrese; Romeo Chacko; Abdifatah Cabrera; Joseph Snow; Brandon Hernandez; Deepika Márquez; Bridget Parikh; Dolores Higgins; Karolina Vergara; Rosa M Raza; Apolinar Hall; Cristhian Welch; Zandra Soto; Petra Paniagua; Pema Seo; Nadia Natarajan; Riley Hanna; Karuna Santana; Jane Paul; Conrad Amato; PCP,NO Other Interventions: Discharge Summary Assessment (RN) Last Done: 05/07/25 10:50
--- NOTE | 2025-05-07 15:34 | Electrocardiogram Report ---
Test Reason : Blood Pressure : */* mmHG Vent. Rate : 136 BPM Atrial Rate : * BPM P-R Int : * ms QRS Dur : 70 ms QT Int : 296 ms P-R-T Axes : * 38 0 degrees QTcB Int : 445 ms Atrial fibrillation with rapid ventricular response with premature ventricular or aberrantly conducte d complexes Low voltage QRS Cannot rule out Anteroseptal infarct (cited on or before 04-May-2025) Abnormal ECG When compared with ECG of 04-May-2025 19:09, Atrial fibrillation has replaced Sinus rhythm Vent. rate has increased by 45 bpm Confirmed by Mir Retana ([id number]) on 05/07/2025 3:34:36 PM Referred By: REFERRED SELF Confirmed By: Mir Retana
--- NOTE | 2025-05-11 12:56 | Electrocardiogram Report ---
Test Reason : Blood Pressure : */* mmHG Vent. Rate : 71 BPM Atrial Rate : 71 BPM P-R Int : 142 ms QRS Dur : 76 ms QT Int : 384 ms P-R-T Axes : 63 13 27 degrees QTcB Int : 417 ms Normal sinus rhythm Low voltage QRS Cannot rule out Anterior infarct (cited on or before 04-May-2025) Abnormal ECG When compared with ECG of 06-May-2025 00:26, (unconfirmed) Sinus rhythm has replaced Atrial fibrillation Vent. rate has decreased by 65 bpm Non-specific change in ST segment in Anterior leads Confirmed by Mir Retana ([id number]) on 05/11/2025 12:55:59 PM Referred By: REFERRED SELF Confirmed By: Mir Retana
== END 2025-05-07 12:56 | disposition home or self-care (01) | DRG 690 ==
LOC: ED 17:07 → 2S 21:51